=== PATIENT | male | born 1940 | race Caucasian/White ===

== ENCOUNTER 2016-11-26 09:16 | Emergency (ER) | payer OTHER ==
[2016-11-26] MEDS ORDERED: XYLOCAINE-MPF 1% INJ ONE (10:38)
[2016-11-26] MEDS ORDERED: BOOSTRIX VACCINE IM ONE (10:40)
--- NOTE | 2016-11-26 10:42 | PROVIDER DOCUMENTATION ---
HPI-Rash/Wound/ReCheck - General Chief Complaint: Fall Stated Complaint: FALL Time Seen by Provider: 11/26/16 10:35 Source: patient Allergies/Adverse Reactions: Allergies Allergy/AdvReac Type Severity Reaction Status Date / Time meperidine HCl * Allergy Unknown Verified 11/26/16 11:17 [From Demerol] codeine AdvReac CONSTIPATIO Verified 11/26/16 11:17 N Home Medications: Aspirin 325 mg PO DAILY 07/12/14 Citalopram [Celexa] 20 mg PO DAILY 07/12/14 Clopidogrel Bisulfate [Plavix] 75 mg PO DAILY 07/12/14 Isosorbide Mononitrate E.r. [Imdur] 30 mg PO DAILY 07/12/14 Ranolazine E.r. 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 Denies other injuries , no loc. Only on Aspirin, no blood thinners. States she he was getting up, got caught in the covers falling over. ED Head and Neck: 1 - through lip Review of Systems - Adult - REVIEW OF SYSTEMS - ADULT Constitutional: reports: no symptoms reported. denies: chills, fever, fatique Eyes: reports: no symptoms reported. denies: decreased vision, blurred vision, double vision, eye pain Ears, Nose, Mouth & Throat: reports: other (lip laceration). denies: ear pain, nose pain, throat pain Cardiovascular: reports: no symptoms reported. denies: chest pain Respiratory: reports: no symptoms reported. denies: cough, shortness of breath Gastrointestinal: reports: no symptoms reported. denies: abdominal pain, diarrhea, nausea, vomiting Genitourinary: reports: no symptoms reported. denies: dysuria, discharge, frequency, incontinence Musculoskeletal: denies: bone pain, back pain, joint pain, muscle aches, neck pain Integumentary: reports: no symptoms reported, other (laceration). denies: rash Neurological: reports: no symptoms reported. denies: ataxia, dizziness/vertigo , headache/migraines Psychiatric: reports: no symptoms reported Endocrine: reports: no symptoms reported Hematologic/Lymphatic: reports: no symptoms reported Allergic/Immunologic: reports: no symptoms reported All Other Systems: Reviewed and Negative Past History - Adult - PAST MEDICAL HISTORY-ADULT Review of Records: reports: Old Records Reviewed, Nursing Assessment Review, Medications Reviewed Major Childhood Illnesses: reports: denies history Cardiovascular: reports: CAD, HTN Respiratory: reports: denies history Gastrointestinal: reports: denies history Genitourinary: reports: denies history Musculoskeletal: reports: denies history Neurological: reports: denies history Psychiatric: reports: depression Endocrine/Immune: reports: denies history Other Conditions: reports: denies history - PRIOR SURGERIES/PROCEDURES Surgical/Procedure History: reports: reviewed, not pertinent - IMMUNIZATION STATUS Childhood Immunizations: See Nurse Assessment Flu Vaccine: See Nurse Assessment - FAMILY HISTORY Family History: reviewed, not pertinent - SOCIAL HISTORY Smoking: quit greater than 1 year Substance Use: none/never Alcohol Use Frequency: never Physical Exam-General - PHYSICAL EXAM-ADULT Initial Vital Signs Reviewed: Yes - CONSTITUTIONAL General Appearance: appears well, alert, no apparent distress - EYES Eyes: PERRL/EOMI, pink conjunctivae - HEAD, EARS, NOSE, MOUTH & THROAT HENMT: moist mucous membranes, normal ENT inspection, other (laceration through the right lower lip, through and through. No apparent dental involvement.) - NECK Neck: non-tender, full range of motion, supple, normal inspection - RESPIRATORY Respiratory: chest non-tender, lungs clear, normal breath sounds, no pleuratic chest pain, no respiratory distress, no accessory muscle use. negative: respiratory distress, decreased breath sounds, accessory muscle use, crackles, rales, rhonchi, wheezing - CARDIOVASCULAR Cardiovascular: normal peripheral pulses, regular rate, rhythm, no edema - MUSCULOSKELETAL Extremity: normal gait - SKIN Integumentary: normal color, normal turgor, warm/dry, laceration(s) (as above through lip) - NEUROLOGIC Neurologic: grossly normal, no motor/sensory deficits - PSYCHIATRIC Psych/Mental Status: normal mood/affect, normal thought content, normal thought process, oriented x 3 Procedures - LACERATION/WOUND REPAIR/FB See Other Wound Location: Other: lower lip through and through Wound Length: 4 cm Wound's Depth, Shape: superficial, irregular Wound Explored/Foreign Body: foreign body removed (piece of wood) Irrigated with Saline?: Yes Prepped with: Hibiclens, Kit Utilized Anesthetic: 1%, Lidocaine/Xylocaine Volume of Anesthetic (ml's): 4 Wound Debrided: minimal Wound Repaired with: Sutures Suture Size/Type: 6.0, Non-Absorbable Number of Sutures: 5 Layer Closure?: Yes Deep Layer Suture Size/Type: 5.0, Absorbable, Gut Number Deep Layer Sutures: 4 Sterile Dressing Applied?: Yes Splint Applied?: No Sling Applied?: No Post Procedure Neurovascular Exam: Intact Procedure Comment: patient tolerated procedure well. Departure - Departure Time of Disposition Order: 11:30 DIAGNOSIS: Laceration Fall Qualifiers: Encounter type: initial encounter Qualified Code(s): W19.XXXA - Unspecified fall, initial encounter Disposition: HOME 01 Certified Medical Emergency: Emergent Condition: Stable Additional Instructions: follow up in 5 days for removal Follow up with your primary care physician ED Follow Up Instructions: You have been treated by a care provider in the Emergency Department. These instructions are being provided to you so you can have an understanding of how to care for yourself upon discharge. Upon discharge from the Emergency Department, you are responsible for making arrangements for follow-up care by a physician of your choice. Take all prescribed medications as directed. Return to the Emergency Department immediately for any new or worsening symptoms. You may call the Physician Referral phone number at [phone] to obtain a list of Physicians who are taking new patients. Prescriptions: Cephalexin [Keflex] 500 mg PO BID #14 capsule Referrals: Abdi Huddleston MD [Primary Care Provider] - Instructions: Fall Prevention and Home Safety, [id number], Laceration Care, Adult, [id number] Attestation - Physician/ Mid-level Attestation Patient care was provided by Mid-level provider (HARDBOARD GRINDER/PA):: Yes Mid-level provider:: Heydi Duffy Mid-level documentation review:: The Mid-level provider documentation, treatment plan and medical decision making was reviewed by the physician who agrees with all treatment and medical decision making by the MLP.
[2016-11-26 11:47] VITALS: BP 124/58
== END 2016-11-26 12:00 | disposition home or self-care (01) ==
LOC: ED 09:16
DX: S01.521A Laceration with foreign body of lip, initial encounter (principal); I25.10 Atherosclerotic heart disease of native coronary artery without angina pectoris; I10 Essential (primary) hypertension; F32.9 Major depressive disorder, single episode, unspecified; Z79.02 Long term (current) use of antithrombotics/antiplatelets; Z79.82 Long term (current) use of aspirin; Z79.899 Other long term (current) drug therapy; Z87.891 Personal history of nicotine dependence; W19.XXXA Unspecified fall, initial encounter
CPT/HCPCS: 90715

== ENCOUNTER 2016-11-28 12:42 | Inpatient (IN) | payer OTHER ==
[2016-11-28] MEDS ORDERED: ZOFRAN IV PRN (13:18)
[2016-11-28] MEDS ORDERED: TYLENOL PO PRN (13:18)
[2016-11-28] MEDS ORDERED: NS 500 ML IV ONE (13:18)
[2016-11-28 13:41] LABS: MANUAL DIFF NEEDED? NO
[2016-11-28 13:51] LABS: BASO% 0.4 % (0.0-0.8); EOS# 0.19 X1000 (0.0-0.7); EOS% 2.7 % (0.0-10.0); HEMATOCRIT 33.4 % (42.0-52.0); HEMOGLOBIN 10.5 g/dL (14.0-18.0); IMM GRAN# 0.11 X1000 (0.0-0.04); IMM GRAN% 1.6 % (0.0-0.5); LYMPH# 1.22 X1000 (1.2-3.4); LYMPH% 17.3 % (20.5-51.1); MCH 31.8 PG (27-31); MCHC 31.4 g/dL (33-37); MCV 101.2 FL (81-99); MONO% 7.1 % (1.7-9.3); MPV 9.1 FL (7.4-10.4); NEUT% 70.9 % (42.2-75.2); PLT 247 X1000 (130-400)
[2016-11-28 14:18] LABS: ALBUMIN 3.6 g/dL (3.5-5.0); CALCIUM 9.6 mg/dL (8.8-10.2); POTASSIUM 4.5 mmol/L (3.5-5.1); TOTAL BILIRUBIN 0.43 mg/dL (0.20-1.00); TOTAL PROTEIN 6.5 g/dL (6.3-8.3)
--- NOTE | 2016-11-28 14:43 | Diag Imaging Result Document ---
PROCEDURE NAME: CHEST-PORTABLE - 11/28/2016 CHEST, SINGLE VIEW: INDICATION: Shortness of breath. COMPARISON: 11/13/2016. FINDINGS: There is stable elevation of the left hemidiaphragm. Stable cardiomegaly with median sternotomy wires and valvular replacement. Stable postsurgical changes in the lower neck. There is pulmonary vascular congestion involving the right lung and prominent interstitial markings similar in appearance to the prior studies. IMPRESSION: 1. Stable cardiomegaly with vascular congestion and interstitial edema versus fibrosis. 2. Stable elevation of the left hemidiaphragm.
--- NOTE | 2016-11-28 18:18 | HISTORY AND PHYSICAL ---
PRIMARY CARE PHYSICIAN: Dr. Abdi Huddleston. CHIEF COMPLAINT: Profound weakness, hypotension, nausea and vomiting. HISTORY OF PRESENT ILLNESS: A 76-year-old white male with a very complicated past medical history, presents for evaluation of above-mentioned symptoms. Current history of present illness began on 11/12/2016. At that time, patient was admitted to [facility] with shortness of breath, weakness, and alteration of mental status. Ultimately, it was felt that the patient's condition largely was secondary to advanced end-stage renal disease. Hemodialysis was initiated. Over the course of hospitalization, his overall condition improved. He was discharged home on 11/14/2016. Since being home, patient has become more accustomed to hemodialysis. He has, however, continued to have profound weakness. He has had 1 fall resulting in ER evaluation. Patient presented to my office today for routine follow up. Upon arrival, his blood pressure was noted to be 65/45. He was experiencing nausea and vomiting. Because of his condition, patient was admitted directly to [facility]. Of note, patient denies fevers, chills, cough, congestion, dysuria, hematuria, pyuria, abdominal pain, or other infectious symptoms. His dementia has been largely unchanged above his baseline. He continues to have shortness of breath which is largely unchanged. He denies palpitations or chest discomfort. PAST MEDICAL HISTORY: 1. Abnormal electrocardiogram with short WI interval. 2. Abnormal skin examination with multiple actinic keratoses, seborrheic keratoses, and a basal cell carcinoma. 3. Dementia. 4. Mild bilateral carotid artery disease. 5. Cervical spine pain status post surgical intervention by Dr. Almodovar in 2007. 6. Cholelithiasis status post laparoscopic cholecystectomy in 2005. 7. End-stage renal disease. 8. Constipation. 9. Hiatal hernia. 10. Unsteady gait secondary to dementia, chronic kidney disease, arthritis, and weakness. 11. Benign prostatic hypertrophy. 12. Reflux disease. 13. Hypertension. 14. Hypertriglyceridemia. 15. Hyperlipidemia. 16. Hyperparathyroidism. 17. Coronary artery disease status post coronary artery bypass grafting in 2009. 18. Mitral valve replacement in 2009. 19. Low back pain. 20. Erectile dysfunction status post penile pump implant in 2005. 21. Obstructive sleep apnea. 22. Osteoarthritis. 23. Peripheral vascular disease. 24. Family history of ischemic heart disease. CURRENT MEDICATIONS: 1. Acetaminophen 650 mg every 4 hours as needed. 2. Amlodipine 2.5 mg at bedtime. 3. Colace 200 mg at bedtime. 4. Famotidine 20 mg twice daily. 5. Losartan 25 mg twice daily. 6. Metoprolol 50 mg twice daily. 7. Aspirin 325 mg daily. 8. Calcitriol 0.5 mg daily. 9. Citalopram 20 mg daily. 10. Clopidogrel 75 mg daily. 11. Isosorbide mononitrate 30 mg daily. 12. Zofran 4 mg every 4-6 hours as needed. 13. Ranexa 500 mg twice daily. 14. Exelon 1.5 mg twice daily. 15. Simvastatin 40 mg at bedtime. ALLERGIES: PATIENT STATES HE IS ALLERGIC TO ARICEPT WHICH CAUSES TRANSAMINITIS, CODEINE WHICH CAUSES ALTERATION OF MENTAL STATUS, DARVOCET-N 100 AND LISINOPRIL. SOCIAL HISTORY: Patient is a previous smoker. He smoked 1/2 pack per day for 37 years. He stopped in 1987. He denies alcohol or illicit drug use. He is retired from [employer]. He worked [employer]. He enjoys football. He does not exercise routinely. FAMILY HISTORY: Patient's father passed at age 70 secondary to complications of coronary artery disease. Patient's mother passed at age 95 secondary to complications of colon cancer. She had a history of an arrhythmia. REVIEW OF SYSTEMS: A 12-point review of systems was performed. Pertinent positives and negatives are noted in history present illness. PHYSICAL EXAMINATION: VITAL SIGNS: Temperature 97.7 degrees, heart rate 64, respirations 18, blood pressure 65/45. GENERAL: Chronically ill appearing. No acute distress. HEENT: Normocephalic, atraumatic. Pupils equal, round, react to light. Extraocular muscles intact. Sclerae anicteric. [place] conjunctivae. Oral and nasopharynx clear without exudate. NECK: Supple. No lymphadenopathy. No thyromegaly. No bruits auscultated. CARDIOVASCULAR: Regular rate and rhythm. No significant murmurs, rubs, or gallops. PULMONARY: Clear to auscultation bilaterally. ABDOMEN: Soft, nontender, nondistended. Positive bowel sounds. EXTREMITIES: Moves all extremities well. No significant clubbing, cyanosis, or edema. NEUROLOGIC: Cranial nerves 2 through 12 grossly intact. Motor and sensory grossly intact. PSYCHOLOGIC EXAMINATION: Patient is pleasantly confused. LABORATORY DATA: White blood cell count 7.07, hemoglobin 10.5, hematocrit 33.4, platelet count 247,000. Sodium 133, potassium 4.5, chloride 96, bicarb 25, BUN 32, creatinine 5.2, glucose 111, total bilirubin 0.43, total protein 6.5, albumin 3.6, alkaline phosphatase 73, AST 15, ALT 8, amylase 109, lipase 150. Chest x-ray reveals stable cardiomegaly with vascular congestion and interstitial edema versus fibrosis. Stable elevation of the left hemidiaphragm. ASSESSMENT AND PLAN: A 76-year-old white male with a very complicated past medical history presents with hypotension, nausea and vomiting. The patient recently was started on hemodialysis. Unfortunately, he missed hemodialysis yesterday. In addition, his p.o. intake has been marginal. He has been taking his blood pressure medications as prescribed. At this point, I suspect the hypotension is likely iatrogenic secondary to blood pressure medications in the setting of newly introduced hemodialysis and decreased p.o. intake. We will need to rule out additional causes including infectious etiologies. His nausea and vomiting is likely secondary to the hypotensive state. We will also remain aware that missing hemodialysis may be playing a role. Patient will be admitted to the hospital for full evaluation and management of each of these conditions. 1. Admit to the ICU. 2. Hypotension. At this point, I do not appreciate an infectious etiology. We will check blood cultures and urine cultures. We will provide patient a 500 mL bolus of normal saline. We will hold antihypertensive agents. We will follow his clinical course very closely. Should pressors support be necessary, we will initiate this accordingly. 3. Intractable nausea and vomiting. I suspect this is a function of his hypotension versus missing hemodialysis. We will consult Dr. Cheatham as described below. We will treat patient supportively. We will treat the hypotension. We will monitor for any evidence of infectious etiologies. 4. End-stage renal disease. We will consult Dr. Cheatham to reinitiate hemodialysis. We will remain aware. 5. Unsteady gait/weakness. Again, I suspect this is multifactorial. Anticipate with improvement in his blood pressure this may also improve. 6. Dementia. We will continue patient's home medications. 7. Hyperlipidemia. We will continue patient on simvastatin therapy. 8. Coronary artery disease. We will remain aware. We will continue his cardiac prudent medications.
[2016-11-28] MEDS: PEPCID PO SCH (20:17)
[2016-11-28] MEDS: RANEXA PO SCH (20:17)
[2016-11-28] MEDS ORDERED: COLACE PO SCH (21:00)
[2016-11-28] MEDS ORDERED: ZOCOR PO SCH (21:00)
[2016-11-28] MEDS: LOPRESSOR PO SCH (21:10)
[2016-11-28] MEDS: EXELON PO SCH (21:12)
[2016-11-29] MEDS ORDERED: TIGHT: 0.2 ML/HR MISC PRN (08:07)
[2016-11-29] MEDS ORDERED: HEPARIN IV PRN (08:07)
[2016-11-29] MEDS ORDERED: NS 2,000 ML MISC PRN (08:07)
[2016-11-29] MEDS: RANEXA PO SCH (08:10)
[2016-11-29] MEDS: LOPRESSOR PO SCH (08:10)
[2016-11-29] MEDS: PEPCID PO SCH (08:11)
[2016-11-29] MEDS: EXELON PO SCH (08:12)
[2016-11-29] MEDS ORDERED: CELEXA PO SCH (09:00)
[2016-11-29] MEDS ORDERED: PLAVIX PO SCH (09:00)
[2016-11-29] MEDS ORDERED: ROCALTROL PO SCH (09:00)
[2016-11-29] MEDS ORDERED: ASPIRIN PO SCH (09:00)
[2016-11-29 09:06] LABS: URINE CULTURE NEEDED? NO; URINE MICRO REVIEW NEEDED? NO; URINE SOURCE CLEAN CATCH
[2016-11-29 09:09] LABS: BILIRUBIN URINE NEGATIVE (NEGATIVE); BLOOD URINE NEGATIVE (NEGATIVE); COLOR YELLOW; GLUCOSE URINE NEGATIVE (NEGATIVE); LEUKOCYTES URINE NEGATIVE (NEGATIVE); NITRITE URINE NEGATIVE (NEGATIVE); PH URINE 5.5; PROTEIN URINE 100 mg/dL (NEGATIVE); SP GRAVITY URINE 1.018; TURBIDITY URINE CLEAR (CLEAR); UR EPITHELIAL CELLS <10 /HPF (<10); URINE BACTERIA NEGATIVE /HPF; URINE RBC <10 /HPF (<10); URINE WBC <10 /HPF (<10); UROBILINOGEN URINE NORMAL (NORMAL)
[2016-11-29] MEDS ORDERED: NS 2,000 ML ONE (10:28)
[2016-11-29] MEDS ORDERED: HEPARIN ONE (10:28)
--- NOTE | 2016-11-29 14:01 | CONSULTATION ---
DATE OF CONSULTATION: 11/29/2016 REASON FOR CONSULTATION: End-stage kidney disease. HISTORY OF PRESENT ILLNESS: He has advanced dementia as well as multiple other medical problems. He has been on dialysis for a couple weeks. He attended his treatment on Thursday and had no new problems and actually did well overall. On Thursday, he got up and promptly fell to the ground and lacerated his lip, requiring multiple stitches. Yesterday he went was unwilling to attend his dialysis treatment and was subsequently seen by Dr. Huddleston and admitted to the hospital. He was significantly hypotensive on his arrival in Dr. Huddleston' office though his hypotension promptly resolved on admission. He was given some fluids. Today he states he feels well. He has not had nausea or vomiting though his appetite has been somewhat low. No shortness of breath. He does have weakness. He has not gotten out of bed today. PAST MEDICAL HISTORY: Dementia, end-stage kidney disease, hypertension, hyperlipidemia, hyperparathyroidism, coronary disease, obstructive his sleep apnea, peripheral vascular disease. HOME MEDICATIONS: Amlodipine, Colace, famotidine, losartan, metoprolol, aspirin, calcitriol, citalopram, clopidogrel, isosorbide, Zofran, Ranexa, Exelon, simvastatin. ALLERGIES: Codeine. Lisinopril. SOCIAL HISTORY: Former smoker. Lives with his . FAMILY HISTORY: Noncontributory. REVIEW OF SYSTEMS: Otherwise noncontributory. PHYSICAL EXAMINATION: Vital Signs: Blood pressure 139/80, heart rate 112, respirations 17, afebrile. Intake and output are incomplete. General: Elderly man lying at 30 degrees in no distress. Skin: Warm and dry with ecchymoses. He has a laceration of the lip. Conjunctivae are pink. Pupils are equal. Oropharynx is dry. Neck: Supple. Neck veins are not distended. Heart: Irregular Lungs: Have equal breath sounds. No crackles. Abdomen: Soft, nontender. Bowel sounds present. Extremities: Have no edema, clubbing, or cyanosis. LABORATORY DATA: Sodium 133, potassium 4.5, chloride 96, bicarbonate 25, BUN 32, creatinine 5.2, hemoglobin 10.5. IMPRESSION: End-stage kidney disease. PLAN: He will have his routine hemodialysis today. We will use his outpatient dry weight and 2 potassium bath. If necessary, we will replace his volume. Echocardiogram is pending to assess his hypotension but his medications have been modified and his blood pressure is improved.
[2016-11-29 16:38] VITALS: BP 119/65
--- NOTE | 2016-11-29 17:03 | ECHO REPORT ---
ORDER DATE: 11/28/2016 INDICATION: Fall, coronary artery disease, shortness of breath. Evaluate for pericardial effusion. This is a limited study. No Doppler evaluation was performed. Two dimensional M-mode images are available. 1. Right heart is poorly visualized. Overall right ventricular systolic function appears normal. 2. There does appear to be a prosthetic in the mitral position. No Doppler evaluation was performed. Limited 2D evaluation is able to be performed. 3. LV systolic function appears normal and is estimated at greater than 55%. No obvious segmental wall motion abnormalities on limited study. 4. Aortic valve opens well. 5. There is no pericardial effusion identified.
--- NOTE | 2016-11-29 18:31 | DISCHARGE SUMMARY ---
ADMISSION DATE: 11/28/2016 DISCHARGE DATE: 11/29/2016 ADMISSION DIAGNOSES: 1. Profound weakness. 2. Hypotension. 3. Nausea and vomiting. DISCHARGE DIAGNOSES: 1. Hypotension, likely secondary to iatrogenic etiology with iatrogenic and medication associated secondary to recent initiation of hemodialysis and decreased p.o. intake. 2. Intractable nausea and vomiting, likely secondary to hypotension. 3. End-stage renal disease, present on arrival. 4. Unsteady gait/weakness, present on arrival. 5. Dementia, present on arrival. 6. Hyperlipidemia, present on arrival. 7. Coronary artery disease, present on arrival. CONSULTATIONS: Dr. Cheatham with nephrology was consulted for further evaluation and management of end-stage renal disease. PROCEDURES: Hemodialysis was performed on 11/29/2016 prior to discharge. HISTORY AND PHYSICAL EXAMINATION: See admit note. PHYSICAL EXAMINATION PRIOR TO DISCHARGE: Vital Signs: Temperature 97.7 degrees, heart rate 112, respirations 17, blood pressure is 139/80. General: Chronically ill appearing, no acute distress. Cardiovascular: Slightly tachycardic. Regular rhythm. No significant murmurs, rubs, or gallops. Pulmonary: Clear to auscultation bilaterally. Abdomen: Soft, nontender, nondistended. Positive bowel sounds. Extremities: Moves all extremities well. No significant clubbing, cyanosis, or edema. Dermatologic: Evaluation reveals no evidence of rash. LABORATORY DATA: Prior to discharge: None. HOSPITAL COURSE: Patient was admitted as per history and physical examination. Hospital course per condition is as follows. 1. Hypotension. While in my office, patient's blood pressure was 65/45. He was pale with associated nausea and vomiting. The patient was immediately placed in the hospital and given 500 mL bolus of normal saline. With the extra volume, patient's blood pressure improved considerably. His losartan and amlodipine were held while hospitalized. Over the course of 12-24 hours, patient's blood pressure normalized. At this point, I suspect the patient's hypotension was secondary to blood pressure medications in the setting of newly introduced hemodialysis. Cultures and infectious evaluation thus far has been negative. We will plan to discharge patient home with losartan and amlodipine held. We will continue metoprolol and Imdur. We will follow his clinical course very closely. We will discuss volume with for hemodialysis control. 2. Intractable nausea, vomiting. I suspect this was a function of his underlying hypotension. With improvement in his blood pressure, his nausea and vomiting improved. We will continue to follow this as an outpatient as well. He has Zofran to be used if needed. 3. End-stage renal disease. Patient missed a round of hemodialysis on . Certainly this may be playing a role in his underlying nausea and vomiting. He will receive hemodialysis prior to discharge. Should he tolerate this well, we will plan discharge thereafter. 4. Unsteady gait/weakness. I suspect this is multifactorial. We will adjust blood pressure medications as described above. We will encourage activity. 5. Dementia. The patient was maintained on his home medications while hospitalized. His dementia is at baseline. 6. Hyperlipidemia. Patient was continued on atorvastatin therapy while hospitalized. 7. Coronary artery disease. The patient has extensive disease. We will continue to optimize his medical and nonmedical management. He currently is asymptomatic. DISCHARGE CONDITION: Stable. DISPOSITION: Discharge to home. MEDICATIONS: 1. Acetaminophen 650 mg every 4 hours as needed. 2. Colace 200 mg at bedtime. 3. Famotidine 20 mg twice daily. 4. Metoprolol 50 mg twice daily. 5. Aspirin 325 mg daily. 6. Calcitriol 0.5 mg daily. 7. Citalopram 20 mg daily. 8. Clopidogrel 75 mg daily. 9. Imdur 30 mg daily. 10. Zofran 4 mg every 4-6 hours as needed. 11. Ranexa 500 mg twice daily. 12. Exelon 1.5 mg twice daily. 13. Simvastatin 40 mg at bedtime. 14. The patient has been instructed to discontinue amlodipine 2.5 mg at bedtime and losartan 25 mg twice daily. FOLLOWUP: The patient to follow with me in approximately 1-2 weeks.
== END 2016-11-29 18:05 | disposition home or self-care (01) | DRG 312 ==
LOC: EDIPHOLD 14:07 → ICU 15:21
PROVIDERS: ADMIT Internal Medicine; ATTEND Internal Medicine
PROC: 5A1D00Z (ICD-10-PCS; principal; 2016-11-29)
DX: I95.2 Hypotension due to drugs (principal); N18.6 End stage renal disease; F03.90 Unspecified dementia, unspecified severity, without behavioral disturbance, psychotic disturbance, mood disturbance, and anxiety; I12.0 Hypertensive chronic kidney disease with stage 5 chronic kidney disease or end stage renal disease; I25.10 Atherosclerotic heart disease of native coronary artery without angina pectoris; E78.5 Hyperlipidemia, unspecified; R26.81 Unsteadiness on feet; Z91.15 Patient's noncompliance with renal dialysis; I73.9 Peripheral vascular disease, unspecified; E21.3 Hyperparathyroidism, unspecified; E78.1 Pure hyperglyceridemia; K21.9 Gastro-esophageal reflux disease without esophagitis; N40.0 Benign prostatic hyperplasia without lower urinary tract symptoms; G47.33 Obstructive sleep apnea (adult) (pediatric); K59.00 Constipation, unspecified; N52.9 Male erectile dysfunction, unspecified; M19.90 Unspecified osteoarthritis, unspecified site; Z79.899 Other long term (current) drug therapy; Z79.82 Long term (current) use of aspirin; Z87.891 Personal history of nicotine dependence; Z85.828 Personal history of other malignant neoplasm of skin; Z79.02 Long term (current) use of antithrombotics/antiplatelets; Z91.81 History of falling; Z95.1 Presence of aortocoronary bypass graft; Z95.2 Presence of prosthetic heart valve; Z82.49 Family history of ischemic heart disease and other diseases of the circulatory system; Z80.0 Family history of malignant neoplasm of digestive organs; T46.5X5A Adverse effect of other antihypertensive drugs, initial encounter; T46.1X5A Adverse effect of calcium-channel blockers, initial encounter
CPT/HCPCS: 71010; 80053; 81001; 82150; 82550; 83690; 85025; 87040; 90715; 93308; J1644; J7030

== ENCOUNTER 2017-03-19 08:45 | Inpatient (IN) ==
[2017-03-19 10:13] LABS: BASO% 0.3 % (0.0-0.8); EOS% 1.4 % (0.0-10.0); HEMOGLOBIN 12.8 g/dL (14.0-18.0); IMM GRAN# 0.02 X1000 (0.0-0.04); IMM GRAN% 0.3 % (0.0-0.5); LYMPH# 0.84 X1000 (1.2-3.4); LYMPH% 12.1 % (20.5-51.1); MANUAL DIFF NEEDED? NO; MCV 106.1 FL (81-99); MONO# 0.76 X1000 (0.11-0.59); MPV 9.3 FL (7.4-10.4); NEUT% 74.9 % (42.2-75.2); PLT 146 X1000 (130-400); RBC 3.77 XMIL (4.7-6.1)
[2017-03-19 10:18] LABS: INR 1.1; PROTIME 11.6 Seconds (9.2-11.7); PTT 30.2 Seconds (22.0-36.0)
[2017-03-19 10:25] LABS: ALBUMIN 3.6 g/dL (3.5-5.0); CALCIUM 10.3 mg/dL (8.8-10.2); POTASSIUM 4.9 mmol/L (3.5-5.1); TOTAL BILIRUBIN 0.58 mg/dL (0.20-1.00); TOTAL PROTEIN 6.6 g/dL (6.3-8.3)
--- NOTE | 2017-03-19 10:28 | PROVIDER DOCUMENTATION ---
HPI-Head Injury - General Chief Complaint: Fall Stated Complaint: fall Time Seen by Provider: 03/19/17 09:35 Source: patient Allergies/Adverse Reactions: Patient Allergies Allergy/AdvReac Type Severity Reaction Status Date / Time meperidine HCl * Allergy Unknown Verified 03/19/17 09:47 [From Demerol] codeine AdvReac CONSTIPATIO Verified 03/19/17 09:47 N Home Medications: Home Medication List Medication Instructions Recorded Confirmed Last Taken Type Aspirin 325 mg PO DAILY 07/12/14 03/19/17 03/19/17 09:00 History Citalopram [Celexa] 20 mg PO DAILY 07/12/14 03/19/17 03/19/17 09:00 History Clopidogrel Bisulfate [Plavix] 75 mg PO DAILY 07/12/14 03/19/17 03/19/17 09:00 History Ranolazine E.r. [Ranexa] 500 mg PO BID 07/12/14 03/19/17 03/18/17 22:00 History SIMVAstatin [Zocor] 40 mg PO QHS 07/12/14 03/19/17 03/18/17 22:00 History Calcitriol [Rocaltrol] 0.5 mcg PO DAILY 05/01/16 03/19/17 03/19/17 09:00 History Ondansetron HCl [Zofran] 4 mg PO Q4-6H PRN PRN 05/01/16 03/19/17 11/25/16 09:00 History Rivastigmine [Exelon] 1.5 mg PO BID 05/01/16 03/19/17 03/18/17 22:00 History Acetaminophen [Tylenol] 650 mg PO Q4H PRN PRN #0 tablet 11/14/16 03/19/17 09:00 Rx Docusate Sodium [Colace] 200 mg PO QHS #0 11/14/16 03/19/17 03/18/17 22:00 Rx Famotidine [Pepcid] 20 mg PO BID #0 tablet 11/14/16 03/19/17 03/18/17 22:00 Rx Metoprolol [Lopressor] 50 mg PO BID #0 tablet 11/14/16 03/19/17 03/18/17 22:00 Rx Isosorbide Mononitrate E.r. [Imdur] 30 mg PO DAILY #0 11/29/16 03/19/17 09:00 Rx - History of Present Illness-Head Injury Nature of Presenting Problem: Pt is a 76 y/o male c chief complaint of facial pain and epistaxis after a fall at home today. Per pt's , pt was getting out of bed and tripped and fell face first onto the bedside table. Per , he did not have LOC but was dazed. Pt has advanced dementia and is at his baseline mental status. Pt immediately had epistaxis and is still bleeding on arrival at the ER. Additionally, pt has renal failure and is on multiple anti-coagulants. Head Injury Location: reports: other (facial) Quality of Pain: reports: aching Severity: reports: mild Onset/Duration: reports: 1/2 hour ago Timing: reports: still present Method of Injury: reports: fell Any recent trauma/injury?: reports: to head Loss of Consciousness: no loss of consciousness Locality of Occurance: Home Similar Symptoms Previously?: No Recently seen or treated by another doctor?: No Review of Systems - Adult - REVIEW OF SYSTEMS - ADULT ROS:: ROS per family Constitutional: reports: no symptoms reported. denies: chills, fatique Eyes: reports: no symptoms reported. denies: blurred vision, double vision Ears, Nose, Mouth & Throat: reports: nose pain. denies: ear pain, throat pain Cardiovascular: reports: no symptoms reported. denies: chest pain, orthopnea Respiratory: reports: no symptoms reported. denies: cough, shortness of breath Gastrointestinal: reports: no symptoms reported. denies: diarrhea, nausea Genitourinary: reports: no symptoms reported. denies: dysuria, frequent UTI's, hematuria Musculoskeletal: reports: no symptoms reported. denies: bone pain, joint pain, joint swelling, muscle aches, muscle weakness Integumentary: reports: no symptoms reported. denies: itching, rash Neurological: reports: no symptoms reported. denies: numbness, paresthesia Psychiatric: reports: no symptoms reported. denies: anxiety, emotional problems Endocrine: reports: no symptoms reported. denies: cold intolerance, heat intolerance Hematologic/Lymphatic: reports: low blood count, prolonged bleeding. denies: blood clots Allergic/Immunologic: reports: no symptoms reported All Other Systems: Reviewed and Negative Past History - Adult - PAST MEDICAL HISTORY-ADULT Review of Records: reports: Old Records Reviewed, Nursing Assessment Review, Medications Reviewed, Social history reviewed & non-contributory. Major Childhood Illnesses: reports: denies history Cardiovascular: reports: CAD, HTN Respiratory: reports: denies history Gastrointestinal: reports: denies history Obstetrical/Gynecological: reports: denies history Genitourinary: reports: dialysis, ESRD Musculoskeletal: reports: denies history Neurological: reports: dementia Psychiatric: reports: depression Endocrine/Immune: reports: denies history Other Conditions: reports: denies history - PRIOR SURGERIES/PROCEDURES Surgical/Procedure History: reports: reviewed, not pertinent - IMMUNIZATION STATUS Childhood Immunizations: See Nurse Assessment Flu Vaccine: See Nurse Assessment - FAMILY HISTORY Family History: reviewed, not pertinent - SOCIAL HISTORY Smoking: denies Substance Use: none/never Alcohol Use Frequency: never Physical Exam- Neurological - Physical Exam-Neuro Initial Vital Signs Reviewed: Yes General Appearance: alert, mild distress Eye Exam: bilateral eye: normal inspection, PERRL, EOMI HENMT: maxillary tenderness, other (epistaxis) Head Injury: active bleeding (epistaxis and bleeding from mouth from posterior epistaxis) Neck: full range of motion, supple, normal inspection Respiratory: chest non-tender, wheezing (mild bilat wheezing (baseline per family)) Cardiovascular: normal peripheral pulses, regular rate, rhythm, no edema Abdominal Exam: normal bowel sounds, non tender, soft Lymphatic: no adenopathy Extremity: normal range of motion, 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 Exam: normal hearing, PERRL Motor/Sensory: no motor deficit Neurologic: grossly normal, no motor/sensory deficits Integumentary: normal color, normal turgor, warm/dry Psych/Mental Status: disoriented x 3 (baseline, dementia) - Glascow Coma Scale Best Eye Response: (4) open spontaneously Best Verbal Response: (4) confused conversation Best Motor Response: (6) obeys commands Progress - PLAN OF CARE/RESULTS Progress/Plan/Lab Results: Vital Signs - 8 hr 03/19/17 08:48 Temperature 98.8 F Pulse Rate 96 H Respiratory Rate 16 Blood Pressure 148/77 O2 Sat by Pulse Oximetry 95 Laboratory Results - last 24 hr 03/19/17 03/19/17 03/19/17 10:00 10:00 10:00 WBC 6.93 RBC 3.77 L Hgb 12.8 L Hct 40.0 L MCV 106.1 H MCH 34.0 H MCHC 32.0 L RDW Std Deviation 16.2 H Plt Count 146 MPV 9.3 Immature Gran % (Auto) 0.3 Neut % (Auto) 74.9 Lymph % (Auto) 12.1 L Cotton % (Auto) 11.0 H Eos % (Auto) 1.4 Baso % (Auto) 0.3 Immature Gran # (Auto) 0.02 Neut # (Auto) 5.19 Lymph # (Auto) 0.84 L Cotton # (Auto) 0.76 H Eos # (Auto) 0.10 Baso # (Auto) 0.02 PT 11.6 INR 1.10 PTT (Actin FS) 30.2 Sodium 146 H Potassium 4.9 Chloride 102 Carbon Dioxide 32 Anion Gap 12 BUN 35 H Creatinine 4.1 H Estimated GFR/1.73 m2 14 BUN/Creatinine Ratio 9 Glucose 115 H Calculated Osmolality 299 Calcium 10.3 H Total Bilirubin 0.58 AST 43 H ALT 47 H Alkaline Phosphatase 108 Total Protein 6.6 Albumin 3.6 Globulin 3.0 Albumin/Globulin Ratio 1.2 Orders Category Date Time Status Admit - [facility] Routine AdmDCTranf 03/19/17 12:09 Ordered Activity - Bed Rest with BRP ORDERED Care 03/19/17 12:09 Active Call Admitting on Arrival AT ADMISSION Care 03/19/17 12:10 Completed Misc. NRSG Communication Order DIRECTED Care 03/19/17 12:15 Active Nursing- MD Consult Request ROUTINE Care 03/19/17 12:08 Active Nursing- MD Consult Request ROUTINE Care 03/19/17 12:08 Active Vital Signs Order ROUTINE Care 03/19/17 12:09 Active Physician/Provider Consults Routine Cons 03/19/17 12:07 Ordered Physician/Provider Consults Routine Cons 03/19/17 12:08 Ordered Diabetic Diet Diet 03/19/17 12:10 Completed FACIAL BONES W/O CONTRAST [CT] Stat Exams 03/19/17 10:20 Completed HEAD/C-SPINE W/O CONTRAST [CT] Stat Exams 03/19/17 10:25 Draft CBC WITH ELECTRONIC DIFF [HEME] Stat Lab 03/19/17 10:00 Completed COMPREHENSIVE METABOLIC PANEL [CHEM] Stat Lab 03/19/17 10:00 Completed PROTIME WITH INR [COAG] Stat Lab 03/19/17 10:00 Completed PTT [COAG] Stat Lab 03/19/17 10:00 Completed 0.9% Sodium Chloride Inj [Ns] 1,000 ml Med 03/19/17 12:09 Discontinued IV KVO Telemetry [OM.EQ] Routine Oth 03/19/17 12:09 Active Transfer/Admit Order [TRANSFER] Routine Transfer 03/19/17 12:[address] Huddleston accepted pt, he was moved from the fast track area of the ER to the main [place] where he was holding as an in-patient while a room was being cleaned for him upstairs. at 3:30pm, I was informed that after this move his oxygen saturation decreased and he required a non-rebreather mask. Nurse stated that she sent pt up to dialysis and he was altered. Per nurse, Dr. Huddleston was notified of these changes. On initial presentation in the ER, pt was noted to have mild bilateral wheezing however his stated the pt has wheezing at baseline and Dr. Huddleston was aware and treating. His room air O2 sat was 95%. Once informed of these changes, I re-contacted Dr. Huddleston at his clinic. He stated he did not need further assistance in managing this patient. At this point, the patient had reached his room on the floor. Result Diagrams: 03/19/17 10:00 03/19/17 10:00 - REASSESSMENT Reassessment #1 Time Reassessed: 10:27 (Dr. White aware of pt and agrees c plan of care. Pt is stable and in CT scan. ) Reassessment #2 Time Reassessed: 12:00 (Dr. White at bedside. She discussed the results of imaging studies and plan of care with patient and his . ) - CT/MRI 1 CT Study: Cervical Spine, Head Impression: Normal (no acute dz - Dr. Alonso (Radiology)) 2 CT Study: Facial Bones Impression: Abnormal (Questionable hairline fx in the R maxilla anteriorly, minimal fluid in sinuses. Probable nasal septal fx and fx of inferior nasal spine of the vomer. No apparent [place] fx - Dr. Hall) - CONSULTS/PCP/HOSPITALIST Notification #1 *Consult/PCP/Hospitalist*: Dr. Gonzalez (ENT) Time Discussed: 11:45 (Recommend admit and d/c plavix and aspirin. Do not pack nose due to fx. ) #2 Consult: Dr. Huddleston (PCP) Time Discussed: 12:06 (Please admit pt to the floor. Consult Dr. Karimi and Dr. Cheatham (Nephrology) for dialysis today. ) #3 Consult: Dr. Cheatham (Nephrology) Time Discussed: 12:13 (Will see pt and evaluate for dialysis. ) Departure - Departure Time of Disposition Decision: 12:16 DIAGNOSIS: Epistaxis Fall Qualifiers: Encounter type: initial encounter Qualified Code(s): W19.XXXA - Unspecified fall, initial encounter Fracture, facial bones Qualifiers: Encounter type: initial encounter Facial bone/location: nasal bone Fracture type: closed Qualified Code(s): S02.2XXA - Fracture of nasal bones, initial encounter for closed fracture Disposition: ADMITTED INPATIENT 09 Certified Medical Emergency: Emergent Condition: Stable - Critical Care Note This patient required my direct personal management.: Yes Attestation - Physician/ BRI Attestation Patient care was provided by Advanced Practice Provider:: Yes Advanced Practice Provider:: Derrick Bernabe Advanced Practice Provider documentation review:: The Mid-level provider documentation, treatment plan and medical decision making was reviewed by the physician who agrees with all treatment and medical decision making by the MLP. The physician spent face to face time with patient:: Yes Advanced Practice Provider documentation review:: The physician spent face to face time with this patient and agrees with all MLP documentation, treatment, and medical decision making by the MLP. See provider notes for further information.
--- NOTE | 2017-03-19 11:13 | Diag Imaging Result Document ---
PROCEDURE NAME: HEAD/C-SPINE W/O CONTRAST - 03/19/[address]: A CT dose reduction protocol was used. COMPARISON: 11/12/2016. FINDINGS: There is stable mild atrophy. Stable mild periventricular white matter chronic microvascular disease. Stable small area of encephalomalacia at the right occipital lobe compatible with a small, old stroke. There is frothy fluid in the nasal passages. There is also some trace fluid in the maxillary sinuses bilaterally, nonspecific. The mastoids and middle ears are clear. IMPRESSION: 1. No acute intracranial abnormality. CT CERVICAL SPINE: A CT dose reduction protocol was used. COMPARISON: 08/25/2016. FINDINGS: Stable anterior fusion plate at C6-C7. Stable advanced degeneration at C7-T1. No acute fracture or subluxation. IMPRESSION: No acute disease or change from prior. [facility]
--- NOTE | 2017-03-19 11:54 | Diag Imaging Result Document ---
PROCEDURE NAME: FACIAL BONES W/O CONTRAST - 03/19/2017 CT OF THE FACIAL BONES: FINDINGS: There is incomplete fusion of the posterior elements of C2. There is fluid in both maxillary sinuses and a mucous retention cyst is present in the right maxillary sinus. The zygomatic arches are intact. The frontal sinuses are clear as seen. The sphenoid sinuses contain a small amount of fluid. The mandible appears to be intact. There is a considerable amount of blood and/or mucus present in the nasal passages. Anterior nasal septum is displaced slightly to the right side. There appears to be a fracture of the inferior nasal spine. There may be a fracture of the left nasal bone. There is a questionable hairline fracture of the medial anterior right maxillary bone. IMPRESSION: Nasal bone and nasal septal fracture with apparent fracture of the inferior nasal spine of the vomer. Questionable right maxillary fracture.
[2017-03-19] MEDS ORDERED: NS 1,000 ML IV ONE (12:09)
[2017-03-19] MEDS ORDERED: NS 2,000 ML MISC PRN (14:01)
[2017-03-19] MEDS ORDERED: HEPARIN IV PRN (14:01)
[2017-03-19] MEDS ORDERED: TIGHT: 0.2 ML/HR MISC PRN (14:01)
[2017-03-19] MEDS ORDERED: NS 2,000 ML ONE (14:19)
[2017-03-19] MEDS ORDERED: HEPARIN ONE (14:20)
[2017-03-19] MEDS ORDERED: STERILE WATER INJ. INJ ONE (15:12)
[2017-03-19] MEDS ORDERED: GEODON IM ONE (15:12)
[2017-03-19 16:02] LABS: ALLEN TEST YES; BE 2.8 mmoll (-3.0-3.0); BLOOD TYPE ARTERIAL; DRAW SITE R RADIAL; METHB 0.6 % (0.0-1.5); O2(CT) 17.1 mL/dL (15.0-23.0); PO2(98.6) 108 mmHg (60-100); SAMPLE BLOOD; SAO2 95.9 % (95.0-100.0); THB 12.7 g/dL (11.5-17.4); pH(98.6) 7.34 (7.35-7.45)
[2017-03-19 16:03] LABS: PCO2(98.6) 55 mmHg (35-45)
[2017-03-19 16:04] LABS: MODALITY SIMPLE MASK
--- NOTE | 2017-03-19 16:13 | Diag Imaging Result Document ---
PROCEDURE NAME: CHEST-PORTABLE - 03/19/2017 PORTABLE CHEST X-RAY: COMPARISON: 11/28/2016. FINDINGS: Stable severely low lung volumes. Stable cardiomegaly. There is worsening diffuse bilateral infiltrates compatible with pulmonary edema. There are worsening pleural effusions. IMPRESSION: Worsening from prior.
--- NOTE | 2017-03-19 17:56 | CONSULTATION ---
DATE OF CONSULTATION: 03/19/2017 HISTORY: A 76-year-old who was getting out of bed this morning, fell, struck nose on dresser, had onset of epistaxis, anterior and posterior. Brought to emergency room. CT evaluation of facial bones revealed nasal fracture along with probable fracture of medial wall maxillary sinus. Patient initially had anterior and posterior epistaxis in the emergency room. He is on anticoagulation. However, epistaxis has resolved. Some nasal congestion due to dried blood in nares. PAST MEDICAL HISTORY: Reviewed. SOCIAL AND FAMILY HISTORY: Reviewed. REVIEW OF SYSTEMS: As noted. PHYSICAL EXAMINATION: CONSTITUTIONAL: Lethargic white male. HEAD AND FACE: Facial ecchymosis, edema. No active bleeding. NOSE: External tender over dorsal. No obvious crepitus. Intranasal exam with dried blood anterior nares bilaterally. No active bleeding. ORAL CAVITY AND PHARYNX: Old blood posterior pharynx. Airway excellent. No acute bleeding. Palpation of infraorbital and lateral rims normal. Zygomatic arch is intact. NECK: Supple. No adenopathy. IMPRESSION: 1. Nasal fracture. 2. Medial maxillary sinus floor fracture. 3. Epistaxis, resolved. PLAN: Neither fracture will require surgical intervention. He has had cessation of bleeding from fracture site which is expected. Will begin saline spray in a.m. for dried blood in nose. Would not disturb nose tonight. Will follow up patient in the morning. Available if needed before then. cc: MD Abdi Denson MD
[2017-03-19] MEDS ORDERED: TYLENOL PO PRN (18:59)
[2017-03-19] MEDS ORDERED: ZOFRAN PO PRN (18:59)
[2017-03-19] MEDS: NS NEB INH SCH (21:16)
[2017-03-19] MEDS: XOPENEX NEB INH SCH (21:16)
[2017-03-20] MEDS: PEPCID PO SCH ×3 (00:59→21:44)
[2017-03-20] MEDS: LOPRESSOR PO SCH ×4 (00:59→21:43)
[2017-03-20] MEDS: COLACE PO SCH ×2 (00:59→21:43)
[2017-03-20] MEDS: EXELON PO SCH ×3 (00:59→21:44)
[2017-03-20] MEDS: ZOCOR PO SCH ×2 (01:00→21:44)
[2017-03-20] MEDS: RANEXA PO SCH ×4 (01:00→21:43)
[2017-03-20] MEDS: ATIVAN IV PRN (03:05)
--- NOTE | 2017-03-20 04:01 | HISTORY AND PHYSICAL ---
PRIMARY CARE PHYSICIAN: Abdi Huddleston MD CHIEF COMPLAINT: Facial trauma. HISTORY OF PRESENT ILLNESS: A 76-year-old white male with a complicated past medical history, presents for evaluation of the above-mentioned symptoms. Current history of present illness began this morning. The patient's is the primary historian. Apparently, patient awoke and stood, unfortunately falling forward and striking his face against the chest of drawers. Upon doing so, patient suffered significant pain. There is no evidence of loss of consciousness during this event. Because of significant blood loss and the significant trauma, patient's contacted EMS. Patient was transported to the emergency department for further evaluation and management. Upon arrival, a full evaluation was pursued. CT scan of facial bones suggested nasal bone and nasal septal fractures with apparent fracture of the inferior nasal spine of the vomer and a questionable right maxillary fracture. CT scan of the head and cervical spine revealed no evidence of acute disease. Because of significant trauma, as well as difficulty with nasal secretions/bleeding, the patient was arranged for admission to the hospital. Prior to doing so, patient was taken for hemodialysis, as he was scheduled to be dialyzed today. Unfortunately, while there, patient experienced significant agitation. Hemodialysis was forced to be discontinued. During this time the patient also developed significant hypoxia. Oxygen therapy was provided. Because of the significant agitation and a danger to himself and others, a dose of Geodon was provided. This has achieved acceptable results with appropriate sedation. PAST MEDICAL HISTORY: 1. Abnormal electrocardiogram with short CT interval. 2. Multiple actinic keratoses, seborrheic keratoses, and the left cheek basal cell carcinoma. 3. Progressive dementia. 4. Bilateral carotid artery disease. 5. Cervical spine disease, status post surgical fusion in 2005. 6. Cholelithiasis, status post cholecystectomy in 2005. 7. Chronic kidney disease, requiring hemodialysis per Dr. Cheatham. 8. Chronic constipation. 9. Hiatal hernia. 10. Increased fall risk with unsteady gait. 11. Benign prostatic hypertrophy. 12. Reflux disease with associated stricture, status post dilation in 2003. 13. Hypertension. 14. Hypertriglyceridemia. 15. Hyperlipidemia. 16. 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 17. Ischemic heart disease, status post coronary artery bypass grafting in 2009. 18. Valvular heart disease, status post mitral valve replacement in 2009. 19. Low back pain, status post surgical interventions in 1988 and 1991. 20. Erectile dysfunction, status post penile pump implant in 2005. 21. Osteoarthritis. 22. Obstructive sleep apnea. 23. Peripheral vascular disease. CURRENT MEDICATIONS: 1. Aspirin 325 mg daily. 2. Calcitriol 0.25 mg daily. 3. Celexa 40 mg daily. 4. Clopidogrel 75 mg daily. 5. Exelon 1.5 mg capsule twice daily. 6. Imdur 30 mg daily. 7. Metoprolol 50 mg twice daily. 8. Pepcid 20 mg twice daily. 9. PreserVision AREDS 1 capsule twice daily. 10. Ranexa 500 mg twice daily. 11. Simvastatin 40 mg at bedtime. 12. Tylenol 325 mg as needed. ALLERGIES: Patient is allergic to Aricept, codeine, Cozaar, Darvocet-N 100, and lisinopril. SOCIAL HISTORY: Patient is a former smoker, having smoked 1-1/2 packs per day for 37 years. He quit in 1987. He denies alcohol and illicit drug use. 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 He enjoys football. He does not exercise routinely. FAMILY HISTORY: The patient's father passed at age 77 secondary to complications of coronary artery disease. Patient's mother passed at age 95 secondary to complications of colon cancer. She had a history of leukemia, NOS. REVIEW OF SYSTEMS: Twelve point review of systems was performed. Pertinent positives and negatives noted in history present illness. PHYSICAL EXAMINATION: VITAL SIGNS: Temperature 98.2 degrees, heart rate 125, respirations 24, blood pressure is 183/89. GENERAL: Well nourished, well developed, in no acute distress. HEENT: Significant trauma with ecchymoses to bilateral periorbital regions, nasal region, and bloody nasal discharge. Normocephalic, atraumatic. Pupils equal, round, reactive to light. Extraocular muscles intact. Sclerae anicteric. Pale conjunctivae. NECK: Supple. No lymphadenopathy. No thyromegaly. No bruits auscultated. CARDIOVASCULAR: Regular rate and rhythm. No significant murmurs, rubs, or gallops. PULMONARY: Clear to auscultation bilaterally. ABDOMEN: Soft, nontender, nondistended. Positive bowel sounds. EXTREMITIES: Moves all extremities well. No significant clubbing, cyanosis, or edema. DERMATOLOGIC: Multiple ecchymoses to the face NEUROLOGIC EXAMINATION: Cranial nerves 2 through 12 grossly intact. Motor and sensory grossly intact. PSYCHOLOGIC EXAMINATION: Is appropriate. LABORATORY DATA: White blood cell count 6.93, hemoglobin 12.8, hematocrit 40.0 , platelet count 146,000. PT 11.6, INR is 1.10, PTT is 30.2. Sodium 146, potassium 4.9, chloride 102, bicarb 32, BUN 35, creatinine 4.1. Glucose 115. Calcium 10.3, total bilirubin 0.58, total protein 6.6, albumin 3.6, alkaline phosphatase 108, AST 43, ALT 47. PH 7.34, pCO2 55, pO2 108, bicarbonate 27. CT scan of the face revealed nasal bone and nasal septal fractures with apparent fracture of the inferior nasal spine of the vomer. Questionable right maxillary fracture. CT scan of the head and cervical spine revealed no acute abnormality. Chest x-ray revealed stable, severely low lung volumes. Stable cardiomegaly. There is worsening diffuse bilateral infiltrates compatible with pulmonary edema. There are worsening pleural effusions. ASSESSMENT AND PLAN: A 76-year-old white male with a complicated past medical history, presents for evaluation of nasal fractures. Unfortunately, because of his underlying anticoagulation and significant bleeding, inpatient treatment was felt most appropriate. Subsequent to this, decision, patient developed acute agitation requiring sedation as well. The patient will be admitted to the hospital for full evaluation and management of each of these conditions. 1. Admit to General Medicine. 2. Nasal bone and nasal septal fractures with apparent fracture of the inferior nasal spine of the vomer-patient's condition has been discussed with Dr. Karimi. Will consult him for further guidance. For now, we will continue supportive care. 3. Acute agitation-this likely is multifactorial. Because the patient was at risk to himself and others, a 1-time dose of Geodon was provided. This assisted with significant improvement in his overall condition. For now, we will follow this clinically. 4. End-stage renal disease-patient was due for dialysis today, but did not tolerate secondary to agitation. We will continue to follow with Dr. Cheatham. If able, I suspect we will plan to dialyze in the morning. 5. Volume overload-patient's chest x-ray is suggestive of significant volume overload state. We will discuss this with Dr. Gladish to determine the extent of fluid which can be removed in a safe and healthy manner. 6. Hypoxia-this was noted while in the emergency department. For now, we will continue oxygen per protocol. We will discuss more aggressive diuresis with Dr. Cheatham. 7. Dementia-unfortunately, the patient has progressive disease. For now, we will continue his current medical regimen. 8. Hypertension-we will continue patient on his home medications. 9. Ischemic heart disease-we will remain aware. We will continue to optimize his medical management. 10. Coronary artery disease. Unfortunately, the patient's aspirin and Plavix will need to be held for now. We will otherwise continue his optimum medical management. 11. Fluid electrolytes nutrition. We will monitor electrolytes. Saline lock IV. Renal diet and prophylaxis. The patient will be placed on SCDs. cc: Abdi Huddleston MD MTDD
[2017-03-20] MEDS: XOPENEX NEB INH SCH ×4 (04:12→20:16)
[2017-03-20 05:26] LABS: BASO% 0.3 % (0.0-0.8); EOS# 0.03 X1000 (0.0-0.7); EOS% 0.2 % (0.0-10.0); HEMATOCRIT 38.9 % (42.0-52.0); HEMOGLOBIN 12.7 g/dL (14.0-18.0); IMM GRAN# 0.06 X1000 (0.0-0.04); IMM GRAN% 0.5 % (0.0-0.5); LYMPH# 1.78 X1000 (1.2-3.4); LYMPH% 13.8 % (20.5-51.1); MANUAL DIFF NEEDED? NO; MCH 34.7 PG (27-31); MCHC 32.6 g/dL (33-37); MCV 106.3 FL (81-99); MONO# 1.31 X1000 (0.11-0.59); MONO% 10.1 % (1.7-9.3); MPV 9.4 FL (7.4-10.4); NEUT% 75.1 % (42.2-75.2); PLT 174 X1000 (130-400); RBC 3.66 XMIL (4.7-6.1)
[2017-03-20 05:28] LABS: ALBUMIN 3.6 g/dL (3.5-5.0); CALCIUM 10.3 mg/dL (8.8-10.2); POTASSIUM 4.2 mmol/L (3.5-5.1); TOTAL BILIRUBIN 0.6 mg/dL (0.20-1.00); TOTAL PROTEIN 6.6 g/dL (6.3-8.3)
[2017-03-20 05:37] LABS: ALLEN TEST YES; BE -0.7 mmoll (-3.0-3.0); BLOOD TYPE ARTERIAL; DRAW SITE R RADIAL; METHB 0.1 % (0.0-1.5); O2(CT) 14.9 mL/dL (15.0-23.0); PO2(98.6) 57 mmHg (60-100); SAMPLE BLOOD; SAO2 88.9 % (95.0-100.0); pH(98.6) 7.31 (7.35-7.45)
--- NOTE | 2017-03-20 05:37 | EKG Report ---
Test Performed on : 03/20/2017 04:41:22 AM Test Reason : wob Blood Pressure : / mmHG Vent. Rate : 144 BPM Atrial Rate : 144 BPM P-R Int : 122 ms QRS Dur : 084 ms QT Int : 344 ms P-R-T Axes : 020 072 080 degrees QTc Int : 532 ms Sinus tachycardia. Posterior infarct (cited on or before 13-NOV-2016) ST \T\ T wave abnormality, consider inferolateral ischemia Abnormal ECG When compared with ECG of 13-NOV-2016 08:54, Questionable change in QRS axis Moderate baseline artifact limits ST and T wave interpretation Rhythmic baseline sway suggests increased work of breathing Nonspecific T wave abnormality now evident in Inferior leads Confirmed by Keyana MOORE, Aj Terrell ([id number]) on 03/21/2017 9:59:12 AM
[2017-03-20 05:38] LABS: MODALITY VENTIMASK
[2017-03-20 05:39] LABS: PCO2(98.6) 52 mmHg (35-45)
[2017-03-20] MEDS ORDERED: NS 2,000 ML MISC PRN (06:57)
[2017-03-20] MEDS ORDERED: NS 2,000 ML ONE (08:00)
--- NOTE | 2017-03-20 09:27 | EKG Report ---
Test Performed on : 03/20/2017 08:54:46 AM Test Reason : tachycardia Blood Pressure : / mmHG Vent. Rate : 138 BPM Atrial Rate : 138 BPM P-R Int : 112 ms QRS Dur : 082 ms QT Int : 308 ms P-R-T Axes : 016 057 116 degrees QTc Int : 466 ms Sinus tachycardia. Possible Inferior infarct , age undetermined Abnormal ECG When compared with ECG of 20-MAR-2017 04:41, (Unconfirmed) T wave inversion no longer evident in Anterior leads Confirmed by Keyana MOORE, Aj Terrell ([id number]) on 03/21/2017 10:02:43 AM
[2017-03-20 09:34] LABS: URINE CULTURE NEEDED? NO; URINE SOURCE CATH
[2017-03-20 09:43] LABS: BILIRUBIN URINE NEGATIVE (NEGATIVE); BLOOD URINE LARGE (NEGATIVE); COLOR YELLOW; GLUCOSE URINE NEGATIVE (NEGATIVE); LEUKOCYTES URINE NEGATIVE (NEGATIVE); NITRITE URINE NEGATIVE (NEGATIVE); PH URINE 5.5; PROTEIN URINE 200 mg/dL (NEGATIVE); SP GRAVITY URINE 1.024; TURBIDITY URINE HAZY (CLEAR); UROBILINOGEN URINE NORMAL (NORMAL)
[2017-03-20 09:45] LABS: URINE MICRO REVIEW NEEDED? YES
[2017-03-20 10:12] LABS: UR EPITHELIAL CELLS >10 /HPF (<10); URINE BACTERIA NEGATIVE /HPF; URINE RBC TNTC /HPF (<10); URINE WBC <10 /HPF (<10)
[2017-03-20 10:13] LABS: URINE CASTS NONE SEEN
[2017-03-20] MEDS: AYR NASAL SPRAY NAS SCH ×3 (10:37→23:37)
--- NOTE | 2017-03-20 11:12 | PROGRESS NOTE ---
DATE: 03/20/2017 SUBJECTIVE: He is sleeping today. He has received Geodon and Ativan. OBJECTIVE: Vital signs: Blood pressure 157/81, heart rate 143, respirations 24, afebrile. General: He is an elderly man, lying on his right side. Increased respiratory rate. Skin: Cool and mildly diaphoretic. HEENT: Extensive bruising around the eyes and mid face. Oropharynx is dry. Neck: Neck veins are not appreciated. Heart: Regular and tachycardic. Lungs: Equal breath sounds, a few scattered crackles. Abdomen: Soft, nontender, bowel sounds present. Extremities: Minimal edema, no clubbing or cyanosis. LABORATORY DATA: Sodium 149, potassium 4.2, chloride 102, bicarbonate 28, BUN 41, creatinine 4.5. Hemoglobin 12.7. IMPRESSION: 1. End-stage kidney disease with pulmonary edema. Hemodialysis this morning. Continue supplemental oxygen. We will reassess. If he does not improve, then he will need to be transferred to the intensive care unit. 2. Tachycardia: Etiology is not obvious. EKG has been ordered as well as blood cultures and empiric antibiotics. 3. Electrolytes/acid-base in target. cc: MD Abdi Cameron MD
[2017-03-20] MEDS: ZOSYN 2.25 GM/NS 2.25 GM/50 ML IVPB IV SCH ×2 (13:29→21:43)
[2017-03-20] MEDS: ROCALTROL PO SCH (13:30)
[2017-03-20] MEDS: CELEXA PO SCH (13:31)
[2017-03-20] MEDS: IMDUR PO SCH (13:31)
[2017-03-20] MEDS: NS NEB INH SCH (20:16)
--- NOTE | 2017-03-20 22:01 | PROGRESS NOTE ---
DATE: 03/20/2017 SUBJECTIVE: Patient was admitted yesterday with facial trauma resulting in nasal bone and nasal septal fractures. Because of patient's underlying end-stage renal disease, hemodialysis was attempted but unfortunately patient did not tolerate secondary to agitation. The patient required Geodon to maintain adequate safety. Over the course of the last 24 hours, unfortunately patient developed increasing work of breathing and shortness of breath. Chest x-ray suggested excess volume. Early this morning, I was contacted in regards to underlying tachycardia and further increase in work of breathing. ABG suggested a respiratory acidosis. The patient was taken to hemodialysis. This evening, the patient remains somnolent but arousable. He is interactive upon questioning. He continues to require supplemental oxygen to maintain adequate oxygen saturations. He remained very weak. There has been no evidence of fevers, chills, nausea, vomiting, or chest discomfort. He has had minimal p.o. intake today. OBJECTIVE: Vital signs: Temperature max 98.8 degrees, heart rate 96-143, respirations 16-27, blood pressure 111-180 over 77-95. General: Chronically ill appearing, mild increased work of breathing. Cardiovascular: Tachycardic, regular rhythm. No significant murmurs, rubs, or gallops. Pulmonary: Crackles at bilateral bases. Abdomen: Soft, nontender, nondistended. Positive bowel sounds. Extremities: Moves all extremities well. No significant clubbing, cyanosis, or edema. Dermatologic: Evaluation reveals multiple ecchymoses and bilateral periorbital ecchymoses secondary to nasal trauma. LABORATORY DATA: White blood cell count 12.94, hemoglobin 12.7, hematocrit 38.9, platelet count 174,000. Sodium 149, potassium 4.2, chloride 102, bicarb 28, BUN 41, creatinine 4.5, glucose 128, calcium 10.3, total bilirubin 0.60, total protein 6.6, albumin 3.6, alkaline phosphatase 112, AST 34, ALT 38. CK 179, troponin 0.088, pH 7.31 pCO2 52, PO2 57, bicarbonate 24. ASSESSMENT AND PLAN: 1. Nasal bone and nasal septal fractures with apparent fracture of the inferior nasal spine of the vomer-I appreciate Dr. Karimi's consultation. We will continue conservative management. At present time, he appears to have achieved hemostasis. 2. Acute agitation-this likely was multifactorial. As above, patient required Geodon for his and the nursing staff's safety. Since that time, patient has remained somewhat somnolent but arousable. There has been no further evidence of agitation. 3. Acute respiratory failure-this also may be multifactorial. Initially, I felt this likely was simply secondary to volume overload in the setting of end-stage renal disease. With his significant epistaxis and high risk for aspiration, I am concerned the patient may also have an aspiration pneumonia/pneumonitis. Blood cultures were drawn today. Patient was started on Zosyn therapy. We will continue oxygen per protocol and aspiration precautions. We will follow this closely. 4. End-stage renal disease-patient received hemodialysis today. We will plan to repeat this tomorrow. Once again, we will follow his volume status closely. 5. Volume overload-as above, this is secondary to end-stage renal disease. We will plan dialysis again in the a.m. 6. Hypoxia-this is secondary to volume overload and possible aspiration. We will continue oxygen per protocol. 7. Dementia-the patient has progressive disease. We will continue his medical regimen. 8. Hypertension-we will continue patient on his home medications. 9. Ischemic heart disease-patient has longstanding disease. There has been no evidence of active ischemia. We will continue to optimize his medical management with the exception of holding aspirin and Plavix. 10. Code status-I discussed this with patient's . She plans to discuss this further with her family. At this point, he remains a full code. 11. Disposition-at this point, patient continues to require group home care in a hospital setting. We will plan discharge home once appropriate. cc: Abdi Huddleston MD
[2017-03-21] MEDS: XOPENEX NEB INH SCH ×4 (04:28→20:21)
[2017-03-21] MEDS: ATIVAN IV PRN (04:43)
[2017-03-21 05:24] LABS: ALLEN TEST YES; BE 3.1 mmoll (-3.0-3.0); BLOOD TYPE ARTERIAL; DRAW SITE R RADIAL; METHB 0.3 % (0.0-1.5); O2(CT) 23.8 mL/dL (15.0-23.0); PCO2(98.6) 50 mmHg (35-45); PO2(98.6) 103 mmHg (60-100); SAMPLE BLOOD; SAO2 95.8 % (95.0-100.0); THB 17.7 g/dL (11.5-17.4); pH(98.6) 7.38 (7.35-7.45)
[2017-03-21 05:25] LABS: MODALITY VENTIMASK
[2017-03-21 07:07] LABS: MANUAL DIFF NEEDED? NO
[2017-03-21 07:11] LABS: BASO% 0.6 % (0.0-0.8); EOS# 0.07 X1000 (0.0-0.7); EOS% 0.9 % (0.0-10.0); HEMATOCRIT 36.8 % (42.0-52.0); HEMOGLOBIN 12.2 g/dL (14.0-18.0); IMM GRAN# 0.03 X1000 (0.0-0.04); IMM GRAN% 0.4 % (0.0-0.5); LYMPH# 0.82 X1000 (1.2-3.4); LYMPH% 10.1 % (20.5-51.1); MCH 34.3 PG (27-31); MCHC 33.2 g/dL (33-37); MCV 103.4 FL (81-99); MONO# 0.85 X1000 (0.11-0.59); MONO% 10.5 % (1.7-9.3); MPV 9.3 FL (7.4-10.4); NEUT% 77.5 % (42.2-75.2); PLT 148 X1000 (130-400); RBC 3.56 XMIL (4.7-6.1)
[2017-03-21 07:32] LABS: ALBUMIN 3.4 g/dL (3.5-5.0); CALCIUM 9.7 mg/dL (8.8-10.2); TOTAL BILIRUBIN 0.77 mg/dL (0.20-1.00); TOTAL PROTEIN 6.2 g/dL (6.3-8.3)
[2017-03-21] MEDS: AYR NASAL SPRAY NAS SCH ×4 (10:56→20:54)
[2017-03-21] MEDS: ZOSYN 2.25 GM/NS 2.25 GM/50 ML IVPB IV SCH ×2 (10:56→21:36)
[2017-03-21] MEDS: ROCALTROL PO SCH (10:57)
[2017-03-21] MEDS: TEARISOL OPH SOLUTION BOTH EYES PRN (10:57)
[2017-03-21] MEDS: IMDUR PO SCH (10:58)
[2017-03-21] MEDS: LOPRESSOR PO SCH ×2 (10:58→20:54)
[2017-03-21] MEDS: RANEXA PO SCH ×2 (10:58→20:54)
[2017-03-21] MEDS: EXELON PO SCH ×2 (10:58→20:56)
[2017-03-21] MEDS: CELEXA PO SCH (10:58)
[2017-03-21] MEDS: PEPCID PO SCH ×2 (10:59→20:56)
[2017-03-21] MEDS ORDERED: ATIVAN IV PRN (13:24)
--- NOTE | 2017-03-21 13:52 | PROGRESS NOTE ---
DATE: 03/21/2017 SUBJECTIVE: This morning, patient is resting comfortably. He arouses easily. Overnight, patient had an additional episode of agitation. Ativan was required for adequate sedation. Otherwise, there has been no evidence of fevers, chills, nausea, vomiting, or chest discomfort. He continues to require oxygen supplementation to maintain adequate saturations. His p.o. intake is minimal. OBJECTIVE: Vital Signs: T-max 98.5 degrees, heart rate 110-124, respirations 18-20, blood pressure 148-185/73-87. General: Chronically ill appearing, no acute distress. Cardiovascular: Tachycardic. Regular rhythm. No significant murmurs, rubs, or gallops. Pulmonary: Crackles at bilateral bases. Abdomen: Soft, nontender, nondistended. Positive bowel sounds. Extremities: Moves all extremities well. No significant clubbing, cyanosis, or edema. Dermatologic: Evaluation reveals multiple ecchymoses including periorbital region secondary to recent trauma. LABORATORY DATA: White blood cell count 8.10, hemoglobin 12.2, hematocrit 36.8, platelet count is a 148,000, pH 7.38, pCO2 50, pO2 103, bicarbonate 27. Sodium 140, potassium 4.0, chloride 100, bicarb 27, BUN 42, creatinine 4.3, glucose 102, calcium 9.7, total bilirubin 0.77, total protein 6.2, albumin 3.4, alkaline phosphatase 101. AST 33, ALT 30. ASSESSMENT AND PLAN: 1. Nasal bone and nasal septal fractures with apparent fracture of the inferior nasal spine of the vomer-I appreciate Dr. Karimi's consultation. At this point, we will continue conservative measures. Hemostasis has been achieved. 2. Acute agitation-this likely is multifactorial. He has required Geodon in the recent past. Last night, his condition was controlled with Ativan. We will continue to follow this closely. I suspect that with treatment of his underlying conditions, his symptoms will improve. 3. Acute respiratory failure-this likely is multifactorial. Chest x-ray suggested significant volume overload. Also I am concerned that aspiration may be playing a role. Yesterday, Zosyn was initiated. Blood cultures were drawn. Thus far, blood cultures are negative. Today, white blood cell count has returned within normal limits. For now, we will continue supportive care. 4. End-stage renal disease-the patient received dialysis yesterday. The plan is for repeat dialysis today. We will continue to work towards optimizing his volume status. 5. Hypoxia-we will continue oxygen per protocol. 6. Dementia-patient has progressive disease. We will continue his current medical regimen. 7. Hypertension-we will continue patient's home medications. 8. Ischemic heart disease-the patient's aspirin and Plavix have been held. Otherwise, we will continue to optimize his medical management. 9. Disposition-at this point, patient continues to require custodial care in the hospital setting. We will plan discharge home when it is appropriate. cc: Abdi Huddleston MD
--- NOTE | 2017-03-21 16:05 | PROGRESS NOTE ---
DATE: 03/21/2017 SUBJECTIVE: He is awake. He has been fairly difficult to control overnight however. OBJECTIVE: Vital signs: Blood pressure 157/87, heart rate 100, respirations 22, afebrile. Intake none recorded. Output 2.9 L. General: No acute distress. Skin: Warm and dry with extensive bruising on the face. HEENT: Conjunctivae are pink. Oropharynx is clear. Neck: Neck veins are not appreciated. Heart: Regular. Lungs: Have equal breath sounds. No crackles. Abdomen: Soft, nontender. Bowel sounds present. Extremities: Have no edema, clubbing, or cyanosis. IMPRESSION: 1. End-stage kidney disease. We dialyzed him on Thursday and induced hypotension. I believe we got him as dry as we can so we will not plan to dialyze over the weekend. Will treat him again on Thursday. 2. Electrolytes/acid base in target. 3. Anemia in target. 4. Hypoxemia, improved. cc: MD Abdi Cameron MD
[2017-03-21] MEDS: ZOCOR PO SCH (20:54)
[2017-03-21] MEDS: COLACE PO SCH (20:55)
[2017-03-22] MEDS: XOPENEX NEB INH SCH ×4 (04:09→22:49)
[2017-03-22 06:47] LABS: BASO% 0.4 % (0.0-0.8); EOS# 0.29 X1000 (0.0-0.7); EOS% 4.2 % (0.0-10.0); HEMATOCRIT 35.4 % (42.0-52.0); HEMOGLOBIN 11.8 g/dL (14.0-18.0); IMM GRAN# 0.02 X1000 (0.0-0.04); IMM GRAN% 0.3 % (0.0-0.5); LYMPH# 1.03 X1000 (1.2-3.4); LYMPH% 14.8 % (20.5-51.1); MANUAL DIFF NEEDED? NO; MCH 34.4 PG (27-31); MCHC 33.3 g/dL (33-37); MCV 103.2 FL (81-99); MONO# 0.81 X1000 (0.11-0.59); MONO% 11.7 % (1.7-9.3); MPV 9.2 FL (7.4-10.4); NEUT% 68.6 % (42.2-75.2); PLT 145 X1000 (130-400); RBC 3.43 XMIL (4.7-6.1)
[2017-03-22 07:06] LABS: CALCIUM 9.4 mg/dL (8.8-10.2); POTASSIUM 3.8 mmol/L (3.5-5.1); TOTAL BILIRUBIN 0.76 mg/dL (0.20-1.00); TOTAL PROTEIN 6.3 g/dL (6.3-8.3)
[2017-03-22] MEDS: EXELON PO SCH ×2 (09:03→21:30)
[2017-03-22] MEDS: ZOSYN 2.25 GM/NS 2.25 GM/50 ML IVPB IV SCH ×2 (09:04→21:29)
[2017-03-22] MEDS: ROCALTROL PO SCH (09:04)
[2017-03-22] MEDS: AYR NASAL SPRAY NAS SCH ×4 (09:04→21:29)
[2017-03-22] MEDS: CELEXA PO SCH (09:05)
[2017-03-22] MEDS: RANEXA PO SCH ×2 (09:05→21:29)
[2017-03-22] MEDS: PEPCID PO SCH ×2 (09:05→21:30)
[2017-03-22] MEDS: LOPRESSOR PO SCH ×2 (09:05→21:29)
[2017-03-22] MEDS: IMDUR PO SCH (09:05)
[2017-03-22] MEDS: ZOCOR PO SCH (21:29)
[2017-03-22] MEDS: COLACE PO SCH (21:30)
--- NOTE | 2017-03-22 22:02 | PROGRESS NOTE ---
DATE: 03/22/2017 SUBJECTIVE: This morning, patient is much more interactive. He is pleasantly confused, but back to his baseline. Patient's energy level is improving. His p.o. intake is improving. There has been no evidence of fevers, chills, nausea, vomiting, shortness of breath, or chest discomfort. He has titrated off of oxygen requirements. OBJECTIVE: Vital signs: Temperature maximum is 97.9 degrees, heart rate 95-112, respirations 16- 20, blood pressure 120-138/66-72. General: Well nourished, well developed, chronically ill appearing, no acute distress. Cardiovascular: Regular rate and rhythm. No significant murmurs, rubs, or gallops. Pulmonary: Crackles at bilateral bases. Abdomen: Soft, nontender, nondistended. Positive bowel sounds. Extremities: Moves all extremities well. No significant clubbing, cyanosis, or edema. Dermatologic: Evaluation reveals multiple ecchymoses. LABORATORY DATA: White blood cell count 6.95, hemoglobin 11.8, hematocrit 35.4, platelet count 145,000. Sodium 142, potassium 3.8, chloride 98, bicarb 27, BUN 55, creatinine 4.7, glucose 99, calcium 9.4, total bilirubin 0.76, total protein 6.3, albumin 3. Alkaline phosphatase 94, AST 24, ALT 24. ASSESSMENT AND PLAN: 1. Nasal bone and nasal septal fractures with apparent fracture of the anterior nasal spine of the vomer-I appreciate Dr. Karimi's consultation. At this point, we will continue supportive care. He will need outpatient follow up with Dr. Karimi. 2. Acute agitation-this likely was secondary to a combination of his underlying dementia and acute illness/trauma. Today, patient does appear to be back to his baseline. We will continue supportive care. 3. Acute respiratory failure-this likely is secondary to a combination of volume overload in the setting of chronic kidney disease and the possibility of underlying aspiration. The patient is being treated with aggressive measures, including bronchodilators and Zosyn therapy. His volume status is much improved. As described above, patient no longer requires oxygen supplementation. For now, we will continue his current regimen. We will encourage incentive spirometry. 4. End-stage renal disease-we will continue dialysis as arranged per Dr. Cheatham. Tentative plan is for dialysis in the morning. If patient continues to improve, we will plan to discharge home thereafter. 5. Hypoxia-as above, patient's oxygenation has improved with better volume control and treatment for possible acute pulmonary disease. We will follow this. 6. Dementia-the patient has a longstanding disease. Today, his mentation is back to baseline. 7. Hypertension-we will continue patient on his home regimen. 8. Ischemic heart disease-the patient's aspirin and Plavix have been held secondary to his fractures as described above. Otherwise, we will continue his home regimen. 9. Disposition-at this point, patient continues to require fdc care in the hospital setting. We will plan discharge home once appropriate. If able, this likely will occur tomorrow afternoon after hemodialysis. cc: Abdi Huddleston MD
[2017-03-23] MEDS: XOPENEX NEB INH SCH ×4 (03:43→22:37)
[2017-03-23 06:33] LABS: MANUAL DIFF NEEDED? NO
[2017-03-23 06:44] LABS: BASO% 0.6 % (0.0-0.8); EOS# 0.35 X1000 (0.0-0.7); EOS% 5.7 % (0.0-10.0); HEMATOCRIT 36.4 % (42.0-52.0); HEMOGLOBIN 11.7 g/dL (14.0-18.0); IMM GRAN# 0.03 X1000 (0.0-0.04); IMM GRAN% 0.5 % (0.0-0.5); LYMPH# 1.24 X1000 (1.2-3.4); MCH 33.3 PG (27-31); MCHC 32.1 g/dL (33-37); MCV 103.7 FL (81-99); MONO% 11.3 % (1.7-9.3); MPV 9.4 FL (7.4-10.4); NEUT% 61.9 % (42.2-75.2); PLT 165 X1000 (130-400); RBC 3.51 XMIL (4.7-6.1)
[2017-03-23] MEDS ORDERED: HEPARIN IV PRN (06:45)
[2017-03-23] MEDS ORDERED: NS 2,000 ML MISC PRN (06:45)
[2017-03-23] MEDS ORDERED: TIGHT: 0.2 ML/HR MISC PRN (06:45)
[2017-03-23 07:18] LABS: CALCIUM 9.6 mg/dL (8.8-10.2); POTASSIUM 3.4 mmol/L (3.5-5.1)
[2017-03-23] MEDS ORDERED: NS 2,000 ML ONE (08:39)
[2017-03-23] MEDS: AYR NASAL SPRAY NAS SCH ×5 (08:41→21:35)
--- NOTE | 2017-03-23 11:04 | PROGRESS NOTE ---
DATE: 03/23/2017 SUBJECTIVE: Mr. New is sitting up on the side of the bed. He appears in no acute distress. Skin is warm and dry. His is at his bedside. OBJECTIVE: His most recent vital signs, his last temperature 97.5 degrees, blood pressure 121/63, heart rate 90, respirations 20, he is on room air. Last recorded saturation 93% . He has had 340 in, 700 has been out per void. LABS: Sodium 143, potassium 3.4, chloride 99, CO2 28, BUN 64, creatinine 5.2, glucose 103, anion gap of 16, calcium is 9.6, white count 6.19, hemoglobin 11.7, hematocrit 36.4 with a platelet count of 165,000. PHYSICAL EXAMINATION: General: This is a 76-year-old white male. He is currently resting in bed. He is in no acute distress. Skin: Warm and dry. HEENT: Normocephalic, atraumatic. He does have bruising with bilateral black eyes noted. There are no lacerations evident. Pupils are equal and reactive to light. He does have conjunctiva that is reddened. Mucous membranes are moist. Neck: Supple. Trachea midline. No JVD. Cardiovascular: Regular rate and rhythm. Slightly tachycardic. No murmur or gallop appreciated. Lungs: Clear to auscultation anteriorly. Equal excursion. Abdomen: Round, soft, nontender. Positive bowel sounds. Extremities: Have minimal edema. No clubbing or cyanosis. Neurological: He is alert and oriented times person and to place, though he is forgetful and confused with a history of dementia. ASSESSMENT AND PLAN: 1. End-stage renal disease. Patient is due for his routine dialysis treatment today. We will place him on a 2 K bath. He is to dialyze for 3-1/2 hours. We will attempt to pull patient to his outpatient dry weight. 2. Fluid volume overload with pulmonary edema. Again he is to add supplemental oxygen and he is has had his dry weight challenged since his admission. 3. Electrolytes and acid-base balance. These remain stable with correction on dialysis. 4. Tachycardia with EKG appearing to be normal. Patient's blood cultures show no growth. He continues on renal dosed antibiotics. No indications for any changes. I would like to thank you for allowing us to follow with this patient. Seen, data reviewed, discussed with Aissatou Purcell on 03/23/17. I agree with the above assessment and plan of care. rg Dictated by ANTOLIN Zheng for Juve Cheatham MD cc: ANTOLIN Zheng MD Scott A. Matthews, MD [facility] CENTERGhada
[2017-03-23] MEDS: ROCALTROL PO SCH ×2 (13:32→14:51)
[2017-03-23] MEDS: ZOSYN 2.25 GM/NS 2.25 GM/50 ML IVPB IV SCH ×3 (13:32→21:35)
[2017-03-23] MEDS: PEPCID PO SCH ×3 (13:33→21:35)
[2017-03-23] MEDS: CELEXA PO SCH ×2 (13:33→14:50)
[2017-03-23] MEDS: IMDUR PO SCH ×2 (13:33→14:51)
[2017-03-23] MEDS: LOPRESSOR PO SCH ×3 (13:33→21:35)
[2017-03-23] MEDS: EXELON PO SCH ×3 (13:33→21:35)
[2017-03-23] MEDS: RANEXA PO SCH ×3 (13:33→21:35)
[2017-03-23] MEDS: COLACE PO SCH (21:35)
[2017-03-23] MEDS: TEARISOL OPH SOLUTION BOTH EYES PRN (21:35)
[2017-03-23] MEDS: ZOCOR PO SCH (21:35)
--- NOTE | 2017-03-23 22:38 | PROGRESS NOTE ---
DATE: 03/23/2017 SUBJECTIVE: This morning, patient was much more alert. The patient states he felt well. The patient was taken to hemodialysis. Apparently during hemodialysis, the patient became more agitated. Hemodialysis was completed and upon return, patient was noted to be significantly confused with agitation. Patient's states that he walked the halls. Ultimately, he had to be escorted back. He was treated with IV Ativan. Improvement in his overall condition was achieved. This evening patient states he is feeling better. He is somewhat weakened. Denies fevers, chills, nausea, vomiting, shortness of breath or chest discomfort. OBJECTIVE: Vital signs: T-max is 98.6 degrees, heart rate 82-107, respirations 16-23, blood pressure 100-123 over 53-66. General: Well nourished, well developed, no acute distress. Cardiovascular: Regular rate and rhythm. No significant murmurs, rubs, or gallops. Pulmonary: Clear to auscultation bilaterally. Abdomen: Soft, nontender, nondistended. Positive bowel sounds. Extremities: Moves all extremities well. No significant cyanosis, clubbing, edema. Dermatologic: Evaluation reveals multiple ecchymoses including the periorbital regions. LABORATORY DATA: White blood cell count 6.19, hemoglobin 11.7, hematocrit 36.4, platelet count 165,000. Sodium 143, potassium 3.4, chloride 99, bicarb 28, BUN 64, creatinine 5.2, glucose 103, calcium 9.6. ASSESSMENT AND PLAN: 1. Nasal bone and nasal septal fractures with apparent fracture of the anterior nasal spine of the vomer-patient's overall condition has been stabilized. He is having no evidence of active bleeding. We will continue to hold aspirin and Plavix therapy. I appreciate Dr. Karimi's consultation. We will continue conservative management per his recommendation. 2. Acute agitation-unfortunately, patient experienced a repeat episode this evening. This likely is secondary to a combination of acute illness exacerbated underlying chronic dementia. Because of his acute change, we will monitor overnight. I suspect we will be able to discharge patient home in the a.m. 3. Acute respiratory failure-this likely secondary to a combination of volume overload and possible aspiration. We will continue Zosyn therapy as he is tolerating this well. We will continue hemodialysis for volume control. His pulmonary status is currently stable. He does not require oxygen therapy. 4. End-stage renal disease-we will continue hemodialysis as dictated by Dr. Cheatham. 5. Hypoxia-the patient has achieved resolution with hemodialysis and antibiotic intervention. 6. Dementia-patient has longstanding disease. We will continue his home medications. 7. Hypertension-will continue patient on his home regimen. Blood pressure is reasonably controlled. 8. Ischemic heart disease-patient has known disease. His aspirin and Plavix has been held secondary to his nasal fractures and associated bleed. We will plan to resume this in the next couple of weeks. 9. Disposition-at this point, patient continues to require usp care in the hospital setting. We will plan discharge home in the a.m. should his condition remained stable. cc: Abdi Huddleston MD
[2017-03-24] MEDS: XOPENEX NEB INH SCH ×3 (04:24→15:51)
[2017-03-24 07:42] LABS: ALBUMIN 3.3 g/dL (3.5-5.0); CALCIUM 9.3 mg/dL (8.8-10.2); POTASSIUM 4.1 mmol/L (3.5-5.1)
[2017-03-24] MEDS: RANEXA PO SCH ×2 (07:45→08:13)
[2017-03-24] MEDS: EXELON PO SCH ×2 (07:45→08:14)
[2017-03-24] MEDS: ROCALTROL PO SCH ×2 (07:45→08:13)
[2017-03-24] MEDS: CELEXA PO SCH ×2 (07:45→08:14)
[2017-03-24] MEDS: IMDUR PO SCH ×2 (07:45→08:14)
[2017-03-24] MEDS: LOPRESSOR PO SCH ×2 (07:45→08:14)
[2017-03-24] MEDS: AYR NASAL SPRAY NAS SCH ×4 (07:46→18:05)
[2017-03-24] MEDS: PEPCID PO SCH (08:14)
[2017-03-24] MEDS: ZOSYN 2.25 GM/NS 2.25 GM/50 ML IVPB IV SCH (11:30)
--- NOTE | 2017-03-24 15:15 | PROGRESS NOTE ---
DATE: 03/24/2017 SUBJECTIVE: Mr. New is resting quietly in a chair. Head of the chair is elevated. He is sleepy. His states that he has been up most of the night and agitated. OBJECTIVE: His most recent vital signs, temperature 98.5 degrees, blood pressure 97/74, heart rate 90, respirations 18. He is on room air. Last recorded saturation is 99%. He has had 720 in. He has had 2 L off from dialysis yesterday. LABS: Sodium 144, potassium 4.1, chloride 101, CO2 22, BUN 33, creatinine 4.1. Glucose 103. Anion gap 21, calcium 9.3, phosphorus 3.5, albumin 3.3. Hemoglobin 11.7 last drawn on 03/23. PHYSICAL EXAMINATION: General: This is a 76-year-old white male. He is currently resting in a chair. He is in no acute distress. He remains very lethargic. Skin: Warm and dry. HEENT: Normocephalic, atraumatic. Bilateral bruising continues to eyes down into the cheek area. No lacerations evident. Pupils are equal and reactive to light. Conjunctivae remains slightly reddened. Bilateral mucous membranes are moist. Neck: Supple. Trachea midline. No JVD. Cardiovascular: Regular rate and rhythm. He is slightly tachycardic. No murmur or gallop appreciated. Lungs: Clear to auscultation anteriorly. Equal excursion. Abdomen: Round, soft, nontender. Positive bowel sounds. Extremities: Have minimal edema lower extremities. No clubbing or cyanosis. Integumentary: As mentioned above. No lacerations. No rashes or lesions. Neurological: As mentioned above. ASSESSMENT AND PLAN: 1. End-stage renal disease. Patient is due for his routine dialysis treatment in the a.m. We will check electrolytes and plan to dialyze him on an appropriate potassium bath. 2. Electrolytes and acid-base balance. These remain stable. 3. Fluid volume overload. This remains stable with improved pulmonary edema per dialysis. 4. Anemia. This remains low but stable. 5. Tachycardia with EKG appearing to be normal. Continues to be monitored and followed. I would to thank you for allowing us to follow with this patient. Seen, data reviewed, discussed with Aissatou Purcell on 03/24/17. I agree with the above assessment and plan of care. rg Dictated by ANTOLIN Zheng for Juve Cheatham MD cc: ANTOLIN Zheng MD Scott A. Matthews, MD [facility]ENTERGhada
[2017-03-24 18:16] VITALS: BP 104/52
--- NOTE | 2017-03-24 23:28 | DISCHARGE SUMMARY ---
ADMISSION DATE: 03/19/2017 DISCHARGE DATE: 03/24/2017 ADMISSION DIAGNOSIS: Facial trauma. DISCHARGE DIAGNOSES: 1. Nasal bone and nasal septal fractures, with apparent fracture of the anterior nasal spine of the vomer. 2. Acute agitation, resolved. 3. Acute respiratory failure, likely secondary to a combination of volume overload and possible aspiration. 4. End-stage renal disease, present on arrival. 5. Hypoxia, resolved. 6. Dementia, present on arrival. 7. Hypertension, present on arrival. 8. Ischemic heart disease, present on arrival. CONSULTATIONS: Dr. Cheatham with nephrology was consulted for further evaluation and management of hemodialysis. PROCEDURES: 1. CT scan of the facial bones was performed on 03/19/2017, which revealed nasal bone and nasal septal fractures, with apparent fracture of the inferior nasal spine of the vomer. Questionable right maxillary fracture. 2. CT scan of the head was performed on 03/19/2017, which revealed no acute intracranial abnormality. 3. CT scan of the cervical spine was performed on 03/19/2017, which revealed no acute disease. 4. Hemodialysis was performed per Dr. Cheatham. HISTORY AND PHYSICAL EXAMINATION: See admit note. PHYSICAL EXAMINATION PRIOR TO DISCHARGE: Vital Signs: Temperature 98.3 degrees, heart rate 89, respirations 22, blood pressure 104/52. General: Well-nourished, well-developed, in no acute distress. Cardiovascular: Regular rate and rhythm. No significant murmurs, rubs, or gallops. Pulmonary: Clear to auscultation bilaterally. Abdomen: Soft, nontender, nondistended. Positive bowel sounds. Extremities: Moves all extremities well. No significant clubbing, cyanosis, or edema. Dermatologic: Evaluation revealed multiple ecchymoses, including in the periorbital region. LABORATORY DATA PRIOR TO DISCHARGE: Sodium 144, potassium 4.1, chloride 101, bicarb 22, BUN 33, creatinine 4.1, glucose of 103, calcium 9.3. HOSPITAL COURSE: Patient was admitted as per history and physical examination. Hospital course per condition is as follows: 1. Nasal bone and nasal septal fractures with apparent fracture of the anterior nasal spine of the vomer - Upon admission, patient was noted to have considerable trauma. Patient was noted to have significant blood loss as well. Dr. Karimi was consulted for further evaluation and management. He recommended supportive care. The patient's aspirin and Plavix were held. Throughout hospitalization, the patient achieved hemostasis. At time of discharge, his symptoms were controlled. For now, we will continue the saline nasal spray. 2. Acute agitation - While hospitalized, the patient was noted to have acute agitation occurring after hemodialysis. Historically, the patient has experienced similar episodes. The patient was treated supportively. At time of discharge, his mentation was at baseline. 3. Acute respiratory failure - The patient was noted to have considerable shortness of breath within early hospitalization. This ultimately was felt to be secondary to volume overload. Patient was also treated with Zosyn for the possibility of aspiration. With time, the patient's overall condition improved considerably. At time of discharge, the patient was requiring no supplemental oxygen therapy. Because of normalization of white blood cell count and afebrile state, further antibiotics were not recommended. He will continue to be followed with hemodialysis. 4. End-stage renal disease - Patient was treated with hemodialysis while hospitalized, per Dr. Cheatham. 5. Dementia - Unfortunately, the patient has progressive disease. We will continue supportive care. 6. Hypertension - Patient's blood pressure remained reasonably controlled on his current regimen. 7. Ischemic heart disease - The patient's aspirin and Plavix were held secondary to his significant bleed. We will continue to hold these for 2 weeks. Thereafter, we will plan to reinitiate therapy. DISCHARGE CONDITION: Stable. DISPOSITION: Discharge to home. MEDICATIONS: 1. Saline nasal spray, 2 sprays each nostril 4 times daily. 2. Ranexa 500 mg twice daily. 3. Simvastatin 40 mg at bedtime. 4. Celexa 20 mg daily. 5. Exelon 1.5 mg twice daily. 6. Calcitriol 0.5 mg daily. 7. Zofran as needed. 8. Famotidine 20 mg twice daily. 9. Metoprolol 50 mg twice daily. 10. Acetaminophen 650 mg every 4 hours as needed. 11. Colace 200 mg at bedtime. 12. Imdur 30 mg daily. 13. Patient has been instructed to hold clonazepam and aspirin for 2 weeks. cc: Abdi Huddleston MD
== END 2017-03-24 19:35 | disposition home or self-care (01) ==
LOC: ED 08:45 → EDIPHOLD 13:16 → 3N 13:17
PROVIDERS: ADMIT Internal Medicine; ATTEND Internal Medicine

== ENCOUNTER 2017-04-22 22:40 | Inpatient (IN) ==
[2017-04-22] MEDS ORDERED: PHENERGAN IM ONE (23:47)
[2017-04-22] MEDS ORDERED: DILAUDID IM ONE (23:47)
--- NOTE | 2017-04-23 01:08 | PROVIDER DOCUMENTATION ---
This chart was entered by Regla Morris Scribe, acting as scribe for Keaton Naidu MD. HPI-Musculoskeletal Pain/Inj - GENERAL Chief Complaint: Fall Stated Complaint: bck pain Time Seen by Provider: 04/22/17 22:45 Source: patient - HX OF PRESENT ILLNESS-MUSKULOSKELTAL Nature of Presenting Problem: 76 Y/O M presents to ED with Extremity Pain. PT arrived via EMS this evening presenting to ED with back pain. Pt states that he was opening his fridge this evening and fell back and hit his hand and hurt his back. Pt is on anti- coagulants. Quality of Pain: reports: aching Severity in ED: severe Onset/Duration: this evening Timing: still present Locality of Occurance: Home - FALL INJURY Location of Pain/Injury: reports: head, back Pain Radiation: reports: no radiation Reason for Fall: reports: lost balance Symptoms prior to fall:: denies: fever/chills/sweaty, dizzy/lightheaded Injury Associated Symptoms: reports: back/neck pain. denies: nausea, weakness, trouble walking - BACK & NECK PAIN/INJURY Back/Neck Pain Location: reports: lumbar spine Context / Method of Injury: reports: fall Review of Systems - Adult - REVIEW OF SYSTEMS - ADULT Constitutional: denies: chills, fever Eyes: reports: no symptoms reported Ears, Nose, Mouth & Throat: reports: no symptoms reported Cardiovascular: reports: no symptoms reported Respiratory: reports: no symptoms reported Gastrointestinal: reports: no symptoms reported Genitourinary: reports: no symptoms reported Musculoskeletal: reports: back pain, other (head pain) Integumentary: reports: no symptoms reported Neurological: reports: no symptoms reported Psychiatric: reports: no symptoms reported Endocrine: reports: no symptoms reported Hematologic/Lymphatic: reports: no symptoms reported Allergic/Immunologic: reports: no symptoms reported All Other Systems: Reviewed and Negative Past History - Adult - PAST MEDICAL HISTORY-ADULT Review of Records: reports: Old Records Reviewed, Nursing Assessment Review, Medications Reviewed, Social history reviewed & non-contributory. Major Childhood Illnesses: reports: denies history Cardiovascular: reports: CAD, HTN Respiratory: reports: denies history Gastrointestinal: reports: denies history Obstetrical/Gynecological: reports: denies history Genitourinary: reports: dialysis, ESRD Musculoskeletal: reports: denies history Neurological: reports: dementia Psychiatric: reports: depression Endocrine/Immune: reports: denies history Other Conditions: reports: denies history - PRIOR SURGERIES/PROCEDURES Surgical/Procedure History: reports: reviewed, not pertinent - IMMUNIZATION STATUS Childhood Immunizations: See Nurse Assessment Flu Vaccine: See Nurse Assessment - FAMILY HISTORY Family History: reviewed, not pertinent Physical Exam-Injury Related - Physical Exam-Injury Related General Appearance: alert, moderate distress Eyes: PERRL/EOMI, pink conjunctivae Head, Ears, Nose, Mouth & Throat: normocephalic/atraumatic, moist mucous membranes, normal ENT inspection, TMs normal, pharynx normal Neck: non-tender, supple Respiratory: lungs clear, normal breath sounds, rib tenderness (minimal) Cardiovascular: normal peripheral pulses, regular rate, rhythm Abdominal Exam: soft Lymphatic: no adenopathy Back Exam: no vertebral tenderness Extremity: non-tender, other (abrasion noted to right elbow). 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 tested Psych/Mental Status: oriented x 3 Progress - PLAN OF CARE/RESULTS Progress/Plan/Lab Results: Vital Signs - 8 hr 04/22/17 22:53 Pulse Rate 92 H Respiratory Rate 16 Blood Pressure 126/73 O2 Sat by Pulse Oximetry 92 L Orders Category Date Time Status HEAD/C-SPINE W/O CONTRAST [CT] Stat Exams 04/22/17 22:46 Taken LUMBAR SPINE 2-VIEWS [RAD] Stat Exams 04/22/17 22:47 Taken THORACIC SPINE [RAD] Stat Exams 04/22/17 22:46 Taken Hydromorphone [Dilaudid] Med 04/22/17 23:47 Discontinued 2 mg IM NOW ONE Promethazine [Phenergan] Med 04/22/17 23:47 Discontinued 25 mg IM NOW ONE - REASSESSMENT Reassessment #1 Time Reassessed: 01:06 (pt now sleeping after pain shot) Status: improving - XRAY 1 XRAY Study: Thoracic Spine Impression: Normal XRAY Interpretation: old compression fx of lower T-Spine 2 XRAY Study: Lumbar Spine XRAY Interpretation: old fx noted and kassidy noted normal otherwise - CT/MRI 1 CT Study: Head Impression: Normal CT Results: NAD Departure - Departure Time of Disposition Decision: 01:06 DIAGNOSIS: Fall Qualifiers: Encounter type: initial encounter Qualified Code(s): W19.XXXA - Unspecified fall, initial encounter Back contusion Qualifiers: Encounter type: initial encounter Laterality: unspecified laterality Qualified Code(s): S20.229A - Contusion of unspecified back wall of thorax, initial encounter Disposition: HOME 01 Certified Medical Emergency: Emergent Condition: Good Additional Freetext Instructions: ED Follow Up Instructions: You have been treated by a care provider in the Emergency Department. These instructions are being provided to you so you can have an understanding of how to care for yourself upon discharge. Upon discharge from the Emergency Department, you are responsible for making arrangements for follow-up care by a physician of your choice. Take all prescribed medications as directed. Return to the Emergency Department immediately for any new or worsening symptoms. You may call the Physician Referral phone number at [phone] to obtain a list of Physicians who are taking new patients. Prescriptions: Hydrocodone/Acetaminophen [Moira 7.5-325 Tablet] 1 each PO Q4-6H PRN PRN #20 tablet PRN Reason: Pain Referrals and Follow-Ups: Abdi Huddleston MD [Primary Care Provider] - - Critical Care Note This patient required my direct & personal management of CC.: No This chart was documented by the indicated scribe, (Regla Morris Scribe) and accurately reflects the services I performed and decisions made by me, Keaton Naidu MD, as attested by the provider's signature.
--- NOTE | 2017-04-23 07:13 | Diag Imaging Result Doc PS360 ---
HEAD/C-SPINE W/O CONTRAST - 04/22/2017 INDICATION: head injury/pain TECHNIQUE: A CT dose reduction protocol was used. COMPARISON: 03/19/2017 FINDINGS: Head CT: Stable chronic microvascular disease. 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 No intracranial mass or hemorrhage. The skull is intact. The sinuses are clear. Cervical spine: Stable anterior fusion plate at C6-C7. Alignment is anatomic. No fracture or subluxation. There are moderate pleural effusions. There is probably pulmonary edema in the lung apices. IMPRESSION: 1. No acute disease in the head. 2. No acute cervical spine injury. 3. Pulmonary edema and moderate pleural effusions. Electronically signed by Rishi Alonso 04/23/2017 7:11 AM
--- NOTE | 2017-04-23 07:35 | Diag Imaging Result Doc PS360 ---
EXAM: LUMBAR SPINE 2-VIEWS HISTORY: fall, back pain TECHNIQUE: AP and lateral COMMENT: There is a Marquez kassidy on the left between T12 and L5. There is a hook on the right side at the L5 level without the kassidy attached. There is also a wire suture on the left side at the L1 level. There is loss of height of the L2 vertebral body anteriorly and this is also true of T12. There is generalized osteopenia. The orthopedic hardware has not changed since the topogram of 07/03/2014. The anterior wedging of the T12 vertebral body was not present at that time. The changes at L2 were present. There is fecal impaction in the rectum. IMPRESSION: Osteoporosis with compression of the T12 and L2 vertebral bodies, the former of which was not present on 07/03/2014. Postsurgical changes. Severe constipation. Electronically signed by Jesse Hall 04/23/2017 7:33 AM
--- NOTE | 2017-04-23 07:38 | Diag Imaging Result Doc PS360 ---
EXAM: THORACIC SPINE HISTORY: fall back pain TECHNIQUE: AP and lateral four views COMMENT: There is generalized osteopenia. There is anterior wedging of T12 which was not visible on the previous chest of 11/13/2016. There is multilevel anterior osteophyte formation. The pedicles appear to be intact. Otherwise, there is no evidence of acute fracture or subluxation. IMPRESSION: Osteoporosis with anterior compression of T12. This was not present in 2014 and is clearly worse since 2016. No more recent previous studies are available for comparison. Electronically signed by Jesse Hall 04/23/2017 7:36 AM
[2017-04-23] MEDS ORDERED: HEPARIN ONE (10:12)
[2017-04-23] MEDS ORDERED: NS 2,000 ML ONE (10:12)
--- NOTE | 2017-04-23 15:56 | PROGRESS NOTE ---
DATE: 04/23/2017 SUBJECTIVE: Mr. New is resting quietly though he has lower back pain. He is on hemodialysis. OBJECTIVE: Patient's vital signs are stable. He is currently on a 2 K potassium bath. Vital signs are stable. Physical exam has been performed. No indications of any changes since this consult has been dictated. ASSESSMENT AND PLAN: 1. End-stage renal disease. Patient is currently on hemodialysis per his routine prescription. He is on a 2 K bath. He is to dialyze for 3.5 hours. We have set his goal for 2.3 to 2.5 L which is to pull him back to his dry weight. 2. Electrolytes. No indications for any changes at this time. We will continue to monitor and follow. I would to thank you for allowing us to follow with this patient. Seen, data reviewed, discussed with Aissatou Purcell on 04/23/17. I agree with the above assessment and plan of care. rg Dictated by ANTOLIN Zheng for Juve Cheatham MD cc: ANTOLIN Zheng MD Scott A. Matthews, MD MTDD
--- NOTE | 2017-04-23 16:05 | CONSULTATION ---
DATE OF CONSULTATION: 04/23/2017 REASON FOR ADMISSION: Recent fall with loss of balance after opening the refrigerator. Patient had hit his hand and his back with severe back pain. REASON FOR CONSULT: End-stage renal disease with assistance with medical management. HISTORY OF PRESENT ILLNESS: Mr. New is a 76-year-old white male who is known to our outpatient services for hemodialysis on Thursday, , Thursday at the [facility]. Subsequently, patient had fallen yesterday evening and due to him being on anticoagulation and his recent fall he was brought by ambulance to the emergency department. He complained of severe back pain. He had left upper hand pain with some bruising noted. Patient was treated for pain initially in the emergency room. Secondary to that he became hard to arouse. He was unable to go to his outpatient dialysis treatment today and due to his altered mental status and recent fall after talking with his primary care physician it was felt that they would go ahead and keep Mr. New for the next 24 hours observation and for hemodialysis treatment. Mr. New does remain confused. He does deny any chest pain. No increased work of breathing. He states that his left arm is hurting. He states that his lower back is giving him a lot of pain. He denies any nausea, vomiting. No diarrhea that he can recollect. The patient had a lumbar spine abdomen and chest CT which were essentially negative but also indicating possible pulmonary infiltrate. No acute disease or bleed noted. CT of the head was negative. PAST MEDICAL HISTORY: Coronary artery disease, hypertension, end-stage renal disease with dialysis on Thursday, , Thursday. He has a history of dementia. Anemia of chronic disease. 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 Patient has COPD and peripheral vascular disease, along with hyperlipidemia and hyperparathyroidism, coronary artery disease, as noted. PREVIOUS SURGICAL HISTORY: Previous tunnel catheter placement. He has an AV fistula noted to the left forearm. ALLERGIES: Patient's allergies are noted to codeine and lisinopril. SOCIAL HISTORY: He is a former smoker. He lives with his spouse. His family is attentive to his care. Family history is noncontributory. REVIEW OF SYSTEMS: Times 10 is noted best obtained per patient with pertinent positives listed above in the HPI. PHYSICAL EXAM: His temperature is 96.6 degrees, blood pressure 117/74, heart rate 112, respirations are 16. He is on a 50% Ventimask. Last recorded saturation 99%. He has had 0 in and 0 out. He is in the process of having 2.3 L removed on dialysis at this time. His labs have not been drawn. His hemoglobin routinely has been stable. As noted his head and C-spine without contrast showed no acute disease with pulmonary edema and moderate pleural effusions. PHYSICAL EXAMINATION: General: This is a 76-year-old elderly white male. He appears chronically ill. He is in mild distress secondary to back pain. Skin: Warm and dry. HEENT: Normocephalic, atraumatic. He has RM. Mucous membranes are dry. Neck: Supple. Trachea midline. No JVD evident. Cardiovascular: He is regular rate and rhythm. He has a soft murmur. No gallop. Lungs: Clear to auscultation anterior. Remains on O2. Equal excursion. Abdomen: Round, soft, nontender. Positive bowel sounds. Back: Does show positive tenderness upon palpation. No abrasion noted upon inspection. Genitourinary: Not inspected. Minimal void with dialysis assist. Neurological: Patient remains confused with a known history of dementia. He is able to assist with exam. ASSESSMENT AND PLAN: 1. End-stage renal disease. Patient is due for his routine dialysis treatment. He is currently on dialysis at this time. 2. Recent fall with negative CT of the head and C-spine negative lumbar spine for acute disease. He has been treated with pain medication and is to be admitted for further observation. 3. Electrolytes and acid-base balance. These are stable. 4. Anemia. This is stable previously with no new labs indicated. 5. Fall. This is being followed by his primary care with negative scans. I would like to thank you for allowing us to follow with this patient. Seen, data reviewed, discussed with Aissatou Purcell on 04/23/17. I agree with the above assessment and plan of care. rg Dictated by ANTOLIN Zheng for Juve Cheatham MD cc: ANTOLIN Zheng MD Scott A. Matthews, MD [facility]ITALGhada
[2017-04-23] MEDS ORDERED: TYLENOL PO PRN (19:53)
[2017-04-23] MEDS ORDERED: ZOFRAN PO PRN (19:53)
--- NOTE | 2017-04-23 20:46 | HISTORY AND PHYSICAL ---
PRIMARY CARE PHYSICIAN: Abdi Huddleston MD. CHIEF COMPLAINT: Intractable lumbar spine pain, alteration of mental status. HISTORY OF PRESENT ILLNESS: A 76-year-old, white male with a complicated past medical history presents for evaluation of above-mentioned symptoms. Current history of present illness began last night at approximately 10 p.m. Patient's states that he walked into the kitchen and fell backwards striking his head against the cabinet. Upon falling, patient complained of profound low back pain. The patient's attempted to assist him to his feet, but was unable. She contacted EMS and patient was transported to the emergency department for further evaluation and management. Upon arrival a full evaluation was pursued. Patient was found to have a T12 compression fracture. 2 mg of Dilaudid and 25 mg of Phenergan were provided. Unfortunately, this caused significant somnolence. 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 By morning, because of his persistent somnolence and alteration of mental status, I was contacted for admission. In addition, with his somnolence, patient developed hypoxia requiring oxygen supplementation. Patient's orders for admission were provided. Patient was due for dialysis. Dialysis was performed this afternoon without incident. This evening, patient's overall condition has improved somewhat. He is arousable and interactive. He continues to require oxygen supplementation. He denies fevers, chills, nausea, vomiting, shortness of breath, or chest discomfort. The patient's lumbar spine pain is present, but stable. Of note, patient's denies him having a syncopal episode. He denies neurological deficits to the lower extremities. The patient denies decreased strength to the lower extremities. PAST MEDICAL HISTORY: 1. Abnormal electrocardiogram with short [place] interval. 2. Abnormal skin examination with multiple actinic keratoses and seborrheic keratoses. 3. Progressive dementia. 4. Bilateral carotid artery disease. 5. Cervical spine disease status post surgical fusion in 2005. 6. Cholelithiasis status post cholecystectomy in 2005. 7. Chronic kidney disease requiring hemodialysis. 8. Chronic constipation. 9. Hiatal hernia. 10. Increased fall risk secondary to unsteady gait. 11. Benign prostatic hypertrophy. 12. Reflux disease. 13. Hypertension. 14. Hypertriglyceridemia. 15. Hyperlipidemia. 16. 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 17. Ischemic heart disease. 18. Valvular heart disease. 19. Low back pain. 20. Erectile dysfunction. 21. Osteoarthritis. 22. Obstructive sleep apnea. 23. Peripheral vascular disease. CURRENT MEDICATIONS: 1. Acetaminophen 650 mg every 4 hours as needed. 2. Citalopram 40 mg daily. 3. Plavix 75 mg daily. 4. Famotidine 20 mg twice daily. 5. Imdur 30 mg daily. 6. Metoprolol 50 mg twice daily. 7. Zofran 4 mg every 4-6 hours as needed. 8. Ranexa 500 mg twice daily. 9. Exelon 1.5 mg twice daily. 10. Simvastatin 40 mg at bedtime. ALLERGIES: Patient states he is allergic to Aricept, codeine, Cozaar, Darvocet-N 100, and lisinopril. SOCIAL HISTORY: Patient is a former smoker having smoked 1-1/2 packs per day for 37 years. He quit in 1987. He denies alcohol or illicit drug use. 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 He enjoys football. He does not exercise routinely. FAMILY HISTORY: Patient's father passed at age 77 secondary to complications of coronary artery disease. Patient's mother passed at age 95 secondary to complications of colon cancer. She had a history of leukemia. REVIEW OF SYSTEMS: A 12 point review of systems was performed. Pertinent positives and negatives noted in history present illness. PHYSICAL EXAMINATION: VITAL SIGNS: Temperature 98.7 degrees, heart rate 115, respirations of 16, blood pressure is 135/63. GENERAL: Chronically ill appearing, in no acute distress. HEENT: Normocephalic, atraumatic. Pupils equal, round, reactive to light. Extraocular muscles intact. Sclerae anicteric. Reedy conjunctivae. Oral and nasopharynx clear without exudate. NECK: Supple. No lymphadenopathy. No thyromegaly. No bruits auscultated. CARDIOVASCULAR: Regular rate and rhythm. No significant murmurs, rubs, or gallops. PULMONARY: Crackles at bilateral bases. Adequate air movement. ABDOMEN: Soft, nontender, nondistended. Positive bowel sounds. EXTREMITIES: Moves all extremities well. No significant clubbing, cyanosis, or edema. NEUROLOGIC EXAMINATION: Cranial nerves 2 through 12 grossly intact. Motor and sensory grossly intact. PSYCHOLOGIC EXAMINATION: Appropriate. MUSCULOSKELETAL EXAMINATION: Reveals pain to palpation of the lower spinous processes. LABORATORY DATA: 1. None. 2. X-ray of the lumbar and thoracic spine revealed osteoporosis with compression fractures of T12 and L2 vertebral bodies, the former of which was not present in 2013. 3. CT scan of the head and cervical spine reveals no acute disease. ASSESSMENT AND PLAN: A 76-year-old white male with a very complicated past medical history as noted presents for evaluation of intractable lumbar spine pain. The patient was treated in the emergency department, but unfortunately developed significant somnolence requiring oxygen supplementation. Patient will be admitted to the hospital for full evaluation and management of alteration of mental status with associated T12 compression fracture. 1. Admit to General Medicine. 2. Alteration of mental status - The patient has baseline dementia. Unfortunately, with Phenergan and Dilaudid therapy, patient became significantly altered and somnolent. As above, patient was monitored in the emergency department but it was ultimately felt hospital observation was most appropriate. This evening, patient is slowly improving. We will continue to hold any sedating agents at present time. 3. Hypoxia - I suspect this is secondary to decreased respiratory drive in the setting of significant somnolence. We will continue oxygen per protocol. We will encourage aspiration precautions. We will follow this closely as well. 4. T12 compression fracture - At the present time, pain is controlled. As pain returns, we will plan to initiate physical therapy. We will provide low-dose Percocet. We will follow this closely as well. 5. End-stage renal disease - The patient is status post hemodialysis today by Dr. Cheatham. We will remain aware. We will plan to check labs in the morning. 6. Hypertension - We will continue patient on his home medications. 7. Coronary artery disease - The patient has known disease. At the present time, he is asymptomatic. We will continue his optimized medical management. 8. Fluid, electrolytes, nutrition. We will monitor electrolytes, saline lock IV, renal diet 9. Prophylaxis. Patient will be placed on SCDs. cc: Abdi Huddleston MD
[2017-04-23] MEDS: EXELON PO SCH (22:20)
[2017-04-23] MEDS: PEPCID PO SCH (22:20)
[2017-04-23] MEDS: LOPRESSOR PO SCH (22:21)
[2017-04-23] MEDS: TYLENOL PO PRN (22:33)
[2017-04-23] MEDS: RANEXA PO SCH (23:58)
[2017-04-24] MEDS: TYLENOL PO PRN ×2 (05:25→18:00)
[2017-04-24 07:31] LABS: BASO% 0.4 % (0.0-0.8); EOS# 0.17 X1000 (0.0-0.7); EOS% 2.5 % (0.0-10.0); HEMATOCRIT 38.7 % (42.0-52.0); HEMOGLOBIN 12.6 g/dL (14.0-18.0); IMM GRAN# 0.02 X1000 (0.0-0.04); IMM GRAN% 0.3 % (0.0-0.5); LYMPH% 10.2 % (20.5-51.1); MANUAL DIFF NEEDED? NO; MCH 34.2 PG (27-31); MCHC 32.6 g/dL (33-37); MCV 105.2 FL (81-99); MONO# 0.74 X1000 (0.11-0.59); MONO% 10.7 % (1.7-9.3); MPV 9.9 FL (7.4-10.4); NEUT% 75.9 % (42.2-75.2); PLT 115 X1000 (130-400); RBC 3.68 XMIL (4.7-6.1)
[2017-04-24 07:45] LABS: ALBUMIN 3.2 g/dL (3.5-5.0); CALCIUM 9.1 mg/dL (8.8-10.2); POTASSIUM 3.8 mmol/L (3.5-5.1); TOTAL BILIRUBIN 0.59 mg/dL (0.20-1.00); TOTAL PROTEIN 6.1 g/dL (6.3-8.3)
[2017-04-24] MEDS ORDERED: NS 2,000 ML MISC PRN (08:18)
[2017-04-24] MEDS ORDERED: TIGHT: 0.2 ML/HR MISC PRN (08:18)
[2017-04-24] MEDS ORDERED: HEPARIN IV PRN (08:18)
[2017-04-24] MEDS ORDERED: NS 2,000 ML ONE (08:55)
[2017-04-24] MEDS ORDERED: HEPARIN ONE (08:55)
[2017-04-24] MEDS: CELEXA PO SCH (11:25)
[2017-04-24] MEDS: LOPRESSOR PO SCH ×2 (11:25→20:30)
[2017-04-24] MEDS: EXELON PO SCH ×2 (11:25→20:30)
[2017-04-24] MEDS: PEPCID PO SCH ×2 (11:25→20:30)
[2017-04-24] MEDS: IMDUR PO SCH (11:25)
[2017-04-24] MEDS: RANEXA PO SCH ×2 (11:25→20:30)
[2017-04-24] MEDS: PLAVIX PO SCH (11:25)
--- NOTE | 2017-04-24 11:51 | PROGRESS NOTE ---
DATE: 04/24/2017 TIME SEEN: 0750 hours. SUBJECTIVE: Mr. New is resting quietly in bed. His is at his bedside. He remains confused. He denies chest pain or increased work of breathing. VITAL SIGNS: His most recent vital signs: Temperature 98.4 degrees, blood pressure 136/67, heart rate 97, respirations are 18. He is on 4 L nasal cannula. Last recorded saturation is 95%. He has had 360 in; he has had 2300 out on previous hemodialysis yesterday evening. LABORATORY DATA: This a.m., sodium 138, potassium 3.8, chloride 96, CO2 28, BUN 28, creatinine 3.7, glucose 103. Anion gap is 14. Calcium 9.1, albumin 3.2. White count 6.89 , hemoglobin 12.6, hematocrit 38.7, with a platelet count of 115. OBJECTIVE: General: On physical exam, this is a 76-year-old white male. He appears chronically ill. He is in no acute distress. Skin: Warm and dry. HEENT: Normocephalic, atraumatic. Conjunctiva is pale. He has RM. Mucous membranes moist. Neck: Supple. Trachea midline. Positive JVD. Cardiovascular: Regular rate and rhythm. No murmur or gallop appreciated. Lungs: Clear to auscultation anterior. Equal excursion. Abdomen: Soft, nontender. Positive bowel sounds. Extremities: Continue with 2+ lower extremity edema. Integumentary : Not inspected. Minimal void with dialysis assist. Neurological: Alert and oriented to person and to place. ASSESSMENT AND PLAN: 1. End-stage renal disease. Patient had his routine dialysis treatment yesterday secondary to positive jugular venous distention and lower extremity swelling with requirement of oxygenation today. We will plan for 2 hours of ultrafiltration. We will attempt to pull 2-3 liters today and plan for his routine dialysis treatment in the morning. The patient is discharged. His has been instructed to take him to dialysis. 2. Electrolytes and acid-base balance. These remain stable. 3. Anemia. This is at target. 4. Altered mental status. This does continued, although patient has underlying dementia. I would like to thank you for allowing us to follow with this patient. Seen, data reviewed, discussed with Aissatou Purcell on 04/23/17. I agree with the above assessment and plan of care. rg Dictated by ANTOLIN Zheng for Juve Cheatham MD cc: ANTOLIN Zheng MD Scott A. Matthews, MD [facility] CENTERGhada
[2017-04-24] MEDS: PERCOCET-5 PO PRN (12:24)
--- NOTE | 2017-04-24 19:14 | PROGRESS NOTE ---
DATE: 04/24/2017 SUBJECTIVE: Overall, patient's condition has improved somewhat from yesterday. He is having decreasing shortness of breath. His mental status is approaching his baseline. He does remain somnolent, although this is improving. He has developed considerable pain associated with his T12 compression fracture. He currently is being treated with oral medications with moderate results. He denies fevers, chills, nausea, vomiting, or chest discomfort. He remains very weak. OBJECTIVE: Vital signs: T-max 98.4 degrees, heart rate 88-110, respirations 17-19, blood pressure 119-136 over 64-73. General: Chronically ill appearing, no acute distress. Cardiovascular: Regular rate and rhythm. No significant murmurs, rubs, or gallops. Pulmonary: Crackles at bilateral bases. Abdomen: Soft, nontender, nondistended. Positive bowel sounds. Extremities: Moves all extremities well. No significant clubbing, cyanosis, or edema. Dermatologic: Evaluation reveals multiple ecchymoses. LABORATORY DATA: White blood cell count 6.89, hemoglobin 12.6, hematocrit 38.7, platelet count 115,000. Sodium 138, potassium 3.8, chloride 98, bicarb 28, BUN 28, creatinine 3.7, glucose 103, calcium 9.1, total bilirubin 0.59, total protein 6.1, albumin 3.2, alkaline phosphatase 108, AST 32, ALT 21. ASSESSMENT AND PLAN: 1. Alteration of mental status-the patient's mental status is approaching baseline. I suspect this was medication induced. He does continue to have some somnolence, but overall is improving. We will follow this closely. 2. Hypoxia-the patient was taken for ultrafiltration today. More fluid was removed. His oxygenation is slowly improving. He has titrated off of oxygen supplementation this evening. 3. T12 compression fracture-unfortunately, patient's pain has increased. Physical therapy was initiated. For now, we will continue symptomatic management with Percocet therapy. We will continue physical therapy. 4. Profound weakness-unfortunately, patient was unable to ambulate significant distances with physical therapy today. Prior to hospitalization, patient was ambulating independently. We will continue physical therapy. Should patient not achieve significant improvement, we will need to consider rehabilitation. 5. End-stage renal disease-we will defer management to Dr. Cheatham. 6. Hypertension-patient's blood pressure is controlled on his current regimen. 7. Coronary artery disease-patient has known disease. We will continue to optimize his medical management. 8. Disposition-at this point, patient continues to require custodial care in the hospital setting. We will plan discharge home once appropriate. cc: Abdi Huddleston MD
[2017-04-25] MEDS: TYLENOL PO PRN ×2 (03:29→16:36)
[2017-04-25] MEDS ORDERED: NS 2,000 ML MISC PRN (07:31)
[2017-04-25] MEDS ORDERED: TIGHT: 0.2 ML/HR MISC PRN (07:31)
[2017-04-25] MEDS ORDERED: HEPARIN IV PRN (07:31)
[2017-04-25] MEDS ORDERED: HEPARIN ONE (08:18)
[2017-04-25] MEDS ORDERED: NS 2,000 ML ONE (08:18)
[2017-04-25 08:31] LABS: ALBUMIN 3.5 g/dL (3.5-5.0); CALCIUM 9.7 mg/dL (8.8-10.2); POTASSIUM 4.4 mmol/L (3.5-5.1)
[2017-04-25] MEDS ORDERED: PERCOCET-5 ONE (10:16)
[2017-04-25] MEDS: PERCOCET-5 PO PRN (10:19)
--- NOTE | 2017-04-25 11:20 | PROGRESS NOTE ---
DATE: 04/25/2017 SUBJECTIVE: Mr. New is resting quietly in bed. He is on hemodialysis he is tolerating this well per tunnel catheter. He has no complaints except for lower to mid back pain. Denies chest pain and increased work of breathing. OBJECTIVE: His most recent vital signs are temperature 98.3 degrees, blood pressure 105/66, heart rate 101, respirations are 14. He is on room air. Last recorded saturation is 91%. He remains on room air at this time. He has had 240 in. He has had 2 L out yesterday with a total of 4.3 L removed on dialysis in the last 48 hours. LABORATORY DATA: Sodium 137, potassium 4.4, chloride 93, CO2 28, BUN 48, creatinine 4.8, glucose 105, anion gap 16, calcium 9.6, phosphorus 4.2, albumin 3.5. He has a white count on the of 6.89 with a hemoglobin 12.6, platelets were 115, hematocrit 38.7. PHYSICAL EXAMINATION: General: This is a 76-year-old white male. He is appears chronically ill. He is in no acute distress. Skin: Warm and dry. HEENT: Normocephalic, atraumatic. Conjunctiva is pale. He has RM. Mucous membranes moist. Neck: Supple. Trachea midline. No JVD. Cardiovascular: Regular rate and rhythm. No murmur or gallop appreciated. Lungs: Clear to auscultation anteriorly. Equal excursion. Integumentary: No rashes or lesions evident. Continues with tunnel catheter to the right chest wall. Genitourinary: Not inspected. Minimal void with dialysis assist. Neurological: He is alert to person and forgetful to place and events. ASSESSMENT AND PLAN: 1. End-stage renal disease. This is patient's routine dialysis treatment day. We will place him on a 3 K bath. We will challenge patient's dry weight. We will leave him on for 3-1/2 hours as tolerated. 2. Electrolytes. These are stable. 3. Acid-base balance. This is stable. 4. Anemia. This is at target. 5. Altered mental status. Patient has underlying dementia. No indications for changes. 6. Severe pain requiring pain medication. This is followed by Dr. Huddleston. I would like to thank you for allowing us to follow with this patient. Dictated by ANTOLIN Zheng for Juve Cheatham MD cc: ANTOLIN Zheng MD Scott A. Matthews, MD
[2017-04-25] MEDS: IMDUR PO SCH (12:07)
[2017-04-25] MEDS: PLAVIX PO SCH (12:11)
[2017-04-25] MEDS: RANEXA PO SCH ×2 (12:11→21:03)
[2017-04-25] MEDS: PEPCID PO SCH ×2 (12:11→21:03)
[2017-04-25] MEDS: LOPRESSOR PO SCH ×2 (12:11→21:03)
[2017-04-25] MEDS: EXELON PO SCH ×2 (12:12→21:03)
[2017-04-25] MEDS: CELEXA PO SCH (12:12)
--- NOTE | 2017-04-25 13:24 | PROGRESS NOTE ---
DATE: 04/25/2017 SUBJECTIVE: This morning, the patient was transported to hemodialysis. He tolerated this procedure well. This afternoon, unfortunately, the patient states he feels poorly. Patient complains of profound weakness as well as significant lumbar spine pain. He denies fevers, chills, nausea, vomiting, shortness of breath, or chest discomfort. He has titrated off of oxygen therapy. OBJECTIVE: Vital Signs: T-max 98.3 degrees, heart rate 80 to 100, respirations 15-21, blood pressure 109 to 140 over 58 to 73. General: Chronically ill-appearing, in no acute distress. Cardiovascular: Regular rate and rhythm. No significant murmurs, rubs, or gallops. Pulmonary: Crackles at bilateral bases. Adequate air movement. Abdomen: Soft, nontender, nondistended. Positive bowel sounds. Extremities: Moves all extremities well. No significant clubbing, cyanosis, or edema. Dermatologic: Evaluation reveals multiple ecchymoses. LABORATORY DATA: Sodium 137, potassium 4.4, chloride 93, bicarbonate 28, BUN 48, creatinine 4.8, glucose 105, calcium 9.7, phosphorus 4.2, albumin 3.5. ASSESSMENT AND PLAN: 1. Alteration of mental status - The patient's mentation has returned to baseline. This likely was medication-induced. For now, we will follow. 2. Hypoxia - This likely was secondary to a volume overload state. He has achieved resolution to baseline. He no longer requires oxygen supplementation. 3. T12 compression fracture - This is quite concerning. We are having difficulty with pain management. For now, we will continue adjusting his pain medications. We will continue physical therapy. I am concerned that he may require rehabilitation at discharge. 4. Profound weakness - This is significant. Patient is unable to rise from the bed alone. We will continue physical therapy. As above, we may consider rehabilitation at discharge. 5. End-stage renal disease - We will defer management to Dr. Cheatham. 6. Hypertension - The patient's blood pressure is reasonably controlled on his current regimen. 7. Coronary artery disease - The patient has longstanding disease. He is optimized medically. He is asymptomatic. 8. Disposition - At this point, patient continues to require jail care in a hospital setting. We will plan discharge home once appropriate. cc: Abdi Huddleston MD
[2017-04-25] MEDS ORDERED: DULCOLAX PO ONE (15:57)
[2017-04-25] MEDS ORDERED: MIRALAX PO ONE (15:58)
[2017-04-25] MEDS: ZOCOR PO SCH ×2 (21:03)
[2017-04-26] MEDS: TYLENOL PO PRN ×4 (05:09→20:44)
[2017-04-26 06:46] LABS: ALBUMIN 3.4 g/dL (3.5-5.0); CALCIUM 9.5 mg/dL (8.8-10.2); POTASSIUM 3.8 mmol/L (3.5-5.1)
[2017-04-26] MEDS: RANEXA PO SCH ×2 (09:48→20:40)
[2017-04-26] MEDS: CELEXA PO SCH (09:48)
[2017-04-26] MEDS: IMDUR PO SCH (09:48)
[2017-04-26] MEDS: LOPRESSOR PO SCH ×2 (09:48→20:40)
[2017-04-26] MEDS: EXELON PO SCH ×2 (09:48→20:40)
[2017-04-26] MEDS: PLAVIX PO SCH (09:49)
[2017-04-26] MEDS: PEPCID PO SCH ×2 (09:49→20:40)
--- NOTE | 2017-04-26 10:27 | PROGRESS NOTE ---
DATE: 04/26/2017 SUBJECTIVE: Unfortunately, patient does remain somewhat somnolent today. He is easily arousable. Yesterday, patient remained very weak throughout the day. Physical therapy attempted to work with him, although he was noncompliant. The patient's states his p.o. intake is marginal. She is having difficulty assisting with even sitting up in the bed. He continues to have intermittent lumbar spine pain. He is being treated with as needed Tylenol or oxycodone. He denies fevers, chills, nausea, vomiting, shortness of breath, or chest discomfort. He no longer requires oxygen supplementation. OBJECTIVE: Vital Signs: T-max 97.8 degrees, heart rate 88-95, respirations 16-21, blood pressure 103-140/48-61. General: Chronically ill appearing, no acute distress. Cardiovascular: Regular rate and rhythm. No significant murmurs, rubs, or gallops. Pulmonary: Crackles at bilateral bases. Adequate air movement. Abdomen: Soft, nontender, nondistended. Positive bowel sounds. Extremities: Moves all extremities well. No significant clubbing, cyanosis, or edema. Dermatologic: Evaluation reveals no evidence of rash. Laboratory Data: Sodium 141, potassium 3.8, chloride 96, bicarb 27, BUN 44, creatinine 4.5, glucose 88, calcium 9.5, phosphorus 4.1, albumin 3.4. ASSESSMENT AND PLAN: 1. Alteration of mental status-the patient has returned to his baseline underlying dementia. The initial alteration was likely medication induced. We will remain aware. 2. Hypoxia-this is likely secondary to a volume overload state. With hemodialysis and ultrafiltration, patient has achieved improvement. His oxygenation is acceptable on room air. 3. T12 compression fracture-unfortunately, patient continues to have considerable pain. In addition, this has precipitated profound weakness and difficulty with ambulation. We will continue medications as noted. We will continue physical therapy as described below. 4. Profound weakness-I am very concerned in this regard. Unfortunately, he is unable to stand and transfer without significant assistance at present time. Prior to admission with the compression fracture, he was walking independently. For now, we will continue physical therapy. We may need to consider rehabilitation at discharge. 5. End-stage renal disease-we will continue hemodialysis per Dr. Cheatham. 6. Hypertension-patient's blood pressure is reasonably controlled on his current regimen. 7. Coronary artery disease-the patient has longstanding disease. We will continue his optimum medical management. 8. Disposition-at this point, patient continues to require usp care in a hospital setting. Depending on his progress in the morning, we will consider director social service consult for rehabilitation placement. cc: Abdi Huddleston MD
--- NOTE | 2017-04-26 10:55 | PROGRESS NOTE ---
DATE: 04/26/2017 SUBJECTIVE: Patient is resting in bed. He becomes agitated to verbal and tactile stimuli. He will follow commands. OBJECTIVE: Vital Signs: Temperature 97.5 degrees, pulse 88, respiratory rate 20, blood pressure 103/48. Intake not measured. Output 1.4 L. General: Elderly gentleman, resting in bed. Chronically ill-appearing. Again, agitated to verbal and tactile stimuli. HEENT: Normocephalic, atraumatic. Oral mucosa moist. Neck: Supple. Trachea midline without JVD. Cardiovascular: Regular rate and rhythm. Pulmonary: Equal excursion. He is clear bilaterally. Abdomen: Soft, with positive bowel sounds. : Not inspected. He has minimal void with hemodialysis assist. Extremities: No clubbing, cyanosis or edema. Integumentary: Skin is warm and dry. LAB DATA: Sodium 141, potassium 3.8, chloride 96, CO2 27, BUN 44, creatinine 4.5, calcium 9.5, phosphorus 4.1, albumin 3.4. ASSESSMENT AND PLAN: 1. End-stage renal disease management. He is on a Thursday, , Thursday schedule. We will plan to dialyze him again Thursday as per his prescription, unless other indications arise that would necessitate it on Thursday. 2. Electrolytes, acid-base balance. These are in target. 3. Anemia. I do not have labs this morning but this has been stable and in target. 4. Altered mental status, underlying dementia. Followed by primary. 5. Pain control. Followed by Dr. Huddleston. Dictated by ANTOLIN Woods for Juve Cheatham MD cc: MD Abdi Cameron MD MTDD
[2017-04-26] MEDS: ZOCOR PO SCH (20:40)
[2017-04-27] MEDS: TYLENOL PO PRN ×3 (05:20→20:38)
[2017-04-27 08:22] LABS: ALBUMIN 3.3 g/dL (3.5-5.0); CALCIUM 9.5 mg/dL (8.8-10.2); POTASSIUM 4.3 mmol/L (3.5-5.1)
[2017-04-27] MEDS: CELEXA PO SCH (08:44)
[2017-04-27] MEDS: RANEXA PO SCH ×2 (08:44→20:38)
[2017-04-27] MEDS: PEPCID PO SCH ×2 (08:44→20:38)
[2017-04-27] MEDS: LOPRESSOR PO SCH ×2 (08:44→20:38)
[2017-04-27] MEDS: IMDUR PO SCH (08:44)
[2017-04-27] MEDS: EXELON PO SCH ×2 (08:44→20:38)
[2017-04-27] MEDS: PLAVIX PO SCH (08:44)
--- NOTE | 2017-04-27 09:27 | Diag Imaging Result Doc PS360 ---
CHEST-PORTABLE - 04/27/2017 INDICATION: fpc placement TECHNIQUE: COMPARISON: 03/19/2017 FINDINGS: Stable cardiomegaly. Stable surgical changes of prior valve replacement. There is overall improvement in the diffuse interstitial pattern compatible with improving pulmonary edema. There is persistent pulmonary vascular congestion. There are basilar pleural effusions. Stable basilar atelectasis or infiltrate. IMPRESSION: Improvement in the pulmonary edema. Electronically signed by Rishi Alonso 04/27/2017 9:25 AM
[2017-04-27] MEDS ORDERED: DULCOLAX PR ONE (10:51)
--- NOTE | 2017-04-27 11:22 | PROGRESS NOTE ---
DATE: 04/27/2017 TIME SEEN: 0750. SUBJECTIVE: Mr. New is resting quietly in bed. His family is at his bedside, his and his 2 sons. He is in no acute distress. He denies any pain. OBJECTIVE: Vital signs: His most recent vital signs, temperature 97.4 degrees, blood pressure 109/58, heart rate 83, respirations 18. He is on room air. Last recorded saturation is 97%. He has had 460 in. He has had 0 out with dialysis in the a.m. Labs: His most recent labs: Sodium 138, potassium 4.3, chloride 92, CO2 27, BUN 63, creatinine 5.4, glucose 96. His anion gap is 19, calcium 9.5, phosphorus 3.6, albumin 3.3. His previous hemoglobin is 12.6 on the 2nd. Chest x-ray done this a.m. shows improvement of pulmonary edema. PHYSICAL EXAMINATION: General: This is a 76-year-old white male. He is in no acute distress, though he is chronically ill in appearance. Skin: Warm and dry. HEENT: Normocephalic, atraumatic. Conjunctivae pale. He has RM. Mucous membranes moist. Neck: Supple. Trachea midline. No JVD. Cardiovascular: Regular rate and rhythm. He has a soft systolic murmur. Otherwise no gallop. Lungs: Clear to auscultation anteriorly. Equal excursion. He remains on room air. Abdomen: Round, soft, nontender. Positive bowel sounds. Genitourinary: Not inspected. Minimal void with dialysis assist. Integumentary: No rashes or lesions evident. Neurological: He is alert to person and to place. Loss of most recent events. ASSESSMENT AND PLAN: 1. End-stage renal disease. Patient normally dialyzes on Thursday, , Thursday schedule. We will plan for dialysis in the a.m. We have spoken to Dr. Huddleston in preparation for patient discharge to outpatient rehab tomorrow after dialysis. 2. Electrolytes and acid-base balance. These are at target. 3. Anemia. This has been stable. 4. Altered mental status with history of dementia. 5. Continued pain. This is followed by Dr. Huddleston. I would like to thank you for allowing us to follow with this patient. Dictated by ANTOLIN Zheng for Juve Cheatham MD cc: ANTOLIN Zheng MD Scott A. Matthews, MD
[2017-04-27] MEDS: ZOCOR PO SCH (20:38)
--- NOTE | 2017-04-27 21:45 | PROGRESS NOTE ---
DATE: 04/27/2017 SUBJECTIVE: Patient's overall condition continues to very slowly improve. He continues to have considerable low back pain. This is inhibiting his ability to ambulate. The patient remains very weak. He complains of abdominal discomfort associated with constipation today. He notes several days without a bowel movement. He denies fevers, chills, nausea, vomiting, shortness of breath, or chest discomfort. OBJECTIVE: Vital signs: T-max 97.7 degrees, heart rate 71-93, respirations 15-18, blood pressure 99-109 over 41-58. General: Chronically ill-appearing, no acute distress. Cardiovascular: Regular rate and rhythm. No significant murmurs, rubs, or gallops. Pulmonary: Clear to auscultation bilaterally. Abdomen: Soft, nontender, nondistended. Positive bowel sounds. Extremities: Moves all extremities well. No significant clubbing, cyanosis, or edema. Dermatologic: Evaluation reveals no evidence of a rash. LABORATORY DATA: Sodium 138, potassium 4.3, chloride 92, bicarb 27, BUN 63, creatinine 5.4, glucose 96, calcium 9.5, phosphorus 3.6, albumin 3.3. ASSESSMENT AND PLAN: 1. Alteration of mental status-patient has achieved improvement to his underlying baseline dementia. Initial alteration was likely secondary to narcotic intervention. We will continue to follow. 2. Hypoxia-patient has achieved improvement with removal of volume with hemodialysis. His oxygen saturation is acceptable on room air. 3. T12 compression fracture-the patient continues to have considerable pain. We will continue physical therapy. We will continue treatment with either Tylenol or Percocet. Once again, this will be followed. 4. Profound weakness-unfortunately, this persists. At this point, patient will likely require rehabilitation at discharge. We will continue to encourage activity and physical therapy. 5. End-stage renal disease-we will continue hemodialysis per Dr. Cheatham. 6. Hypertension-patient's blood pressure is reasonably controlled on his current regimen. 7. Coronary artery disease-we will continue his home medications. 8. Disposition-at this point, patient continues to require residential care in the hospital setting. We will plan discharge home once appropriate. cc: Abdi Huddleston MD
[2017-04-28 07:21] LABS: ALBUMIN 3.2 g/dL (3.5-5.0); CALCIUM 9.3 mg/dL (8.8-10.2); POTASSIUM 4.4 mmol/L (3.5-5.1)
[2017-04-28] MEDS ORDERED: HEPARIN IV PRN (07:27)
[2017-04-28] MEDS ORDERED: NS 2,000 ML MISC PRN (07:27)
[2017-04-28] MEDS ORDERED: TIGHT: 0.2 ML/HR MISC PRN (07:27)
[2017-04-28] MEDS ORDERED: NS 2,000 ML ONE (07:50)
[2017-04-28] MEDS ORDERED: HEPARIN ONE (07:50)
--- NOTE | 2017-04-28 12:36 | DISCHARGE SUMMARY ---
ADMISSION DATE: 04/24/2017 DISCHARGE DATE: 04/28/2017 ADMISSION DIAGNOSES: 1. Intractable lumbar spine pain. 2. Alteration of mental status. DISCHARGE DIAGNOSES: 1. Alteration of mental status/metabolic encephalopathy, returned to baseline. 2. Hypoxia, resolved with hemodialysis/volume removal. 3. Acute T12 compression fracture. 4. Profound weakness. 5. End-stage renal disease, present on arrival. 6. Hypertension, present on arrival. 7. Coronary artery disease, present on arrival. CONSULTATIONS: Dr. Cheatham with Nephrology was consulted for further evaluation and management of end-stage renal disease. PROCEDURES: 1. CT scan of the head was performed on 04/22/2017, which revealed no acute disease in the head. 2. CT scan of the cervical spine was performed on , which revealed no acute cervical spine injury. 3. Thoracic spine x-ray was performed on 04/22/2017, which revealed osteoporosis with anterior compression of T12. This was not present in 2013 and is clearly worse since 2015. No more recent previous studies are available for comparison. 4. Lumbar spine x-ray was performed on 04/22/2017, which revealed osteoporosis with compression fracture of T12 and L2 vertebral bodies, the former of which was not present on 07/03/2014. Post-surgical changes. Severe constipation. HISTORY AND PHYSICAL EXAMINATION: See admit note. PHYSICAL EXAMINATION PRIOR TO DISCHARGE: Vital Signs: Temperature 97.8 degrees, heart rate 54, respirations 17, and blood pressure is 122/65. General: Chronically ill appearing, in no acute distress. Cardiovascular: Regular rate and rhythm. No significant murmurs, rubs, or gallops. Pulmonary: Crackles at bilateral bases. Abdomen: Soft, nontender, nondistended. Positive bowel sounds. Extremities: Moves all extremities well. No significant clubbing, cyanosis, or edema. Dermatologic: Evaluation reveals multiple ecchymoses. LABORATORY DATA PRIOR TO DISCHARGE: Sodium 133, potassium 4.4, chloride 90, bicarbonate 26, BUN 70, creatinine 5.8, glucose 97, calcium 9.3, phosphorus 4.1, albumin 3.2. HOSPITAL COURSE: The patient was admitted as per history and physical examination. Hospital course per condition is as follows. 1. Alteration of mental status/metabolic encephalopathy - Upon admission, patient was noted to have significant alteration. This likely was secondary to a combination of acute pain and medications. With adjustments of his pain medication, in time, his mentation returned to baseline. We will follow this closely as an outpatient. 2. Hypoxia - Upon admission, patient was noted to have considerable hypoxia. This likely was secondary to volume overload state. With hemodialysis/ultrafiltration, patient has achieved adequate saturations on room air. Once again, this will be followed. 3. Acute T12 compression fracture - This was the result of injury resulting in emergency room evaluation. The patient was treated with titrating pain medications while hospitalized. Physical therapy was initiated. We will continue to follow this closely as an outpatient. Physical therapy will be continued. 4. Profound weakness - Unfortunately, patient developed profound weakness associated with his significant pain. As above, physical therapy was initiated. Unfortunately, at time of discharge, patient was not able to carry on his normal daily activities secondary to pain and extreme fall risk. For this reason, patient will be sent to rehabilitation for physical therapy. Goal is for independent ambulation, as he was prior to admission. 5. End-stage renal disease - The patient was followed by Dr. Cheatham while hospitalized. We will continue his current hemodialysis schedule. 6. Hypertension - The patient's blood pressure remained reasonably controlled while hospitalized on his home medications. 7. Coronary artery disease - The patient remained asymptomatic while hospitalized. He is optimized medically. DISCHARGE CONDITION: Stable. DISPOSITION: Discharged to rehabilitation. MEDICATIONS: 1. Acetaminophen 650 mg every 4 hours as needed. 2. Citalopram 40 mg daily. 3. Plavix 75 mg daily. 4. Famotidine 20 mg twice daily. 5. Imdur 30 mg daily. 6. Metoprolol 50 mg twice daily. 7. Zofran 4 mg every 4-6 hours as needed. 8. Ranexa 500 mg twice daily. 9. Exelon 1.5 mg twice daily. 10. Simvastatin 40 mg at bedtime. 11. Percocet 5/325 one-half to 1 tablet every 4-6 hours as needed. FOLLOWUP: Patient is to follow up with me upon discharge from rehabilitation. cc: Abdi Huddleston MD
[2017-04-28] MEDS: RANEXA PO SCH (13:02)
[2017-04-28] MEDS: PLAVIX PO SCH (13:02)
[2017-04-28] MEDS: EXELON PO SCH (13:02)
[2017-04-28] MEDS: CELEXA PO SCH (13:03)
[2017-04-28] MEDS: IMDUR PO SCH (13:03)
[2017-04-28] MEDS: PEPCID PO SCH (13:03)
[2017-04-28] MEDS: LOPRESSOR PO SCH (13:03)
[2017-04-28 13:52] VITALS: BP 104/58
--- NOTE | 2017-04-28 15:22 | PROGRESS NOTE ---
DATE: 04/28/2017 TIME SEEN: 0805. SUBJECTIVE: Mr. New is resting quietly in bed. He has had a rough night. His has been up with him most of the evening. He denies chest pain. No increased work of breathing. States just overall is not feeling well. OBJECTIVE: Vital Signs: His last temperature was 97.8 degrees, blood pressure 122/65, heart rate 54, and respirations 17. He is on room air. Last recorded saturation 96%. He has had 290. He has had zero recorded out, with need for dialysis. General: This is a 76-year-old white male. He is in no acute distress. He appears chronically ill. Skin: Warm and dry. HEENT: Normocephalic, atraumatic. Conjunctivae pale. He has RM. Mucous membranes moist. Neck: Supple. Trachea midline. No JVD. Cardiovascular: Regular rate and rhythm. He has a soft systolic murmur. No gallop appreciated. Lungs: Clear to auscultation anteriorly. Equal excursion on room air. Abdomen: Round, soft, nontender. Positive bowel sounds. Extremities: No edema. No clubbing or cyanosis. Integumentary: The patient has notable bruising to his left upper extremity, both below and above his elbow, left greater than right, with some ecchymoses noted to the right and left lower extremities. Neurological: Patient remains pleasantly confused at this time, though the nurses have had difficulty during the night. LABORATORIES: This a.m., sodium 133, potassium 4.4, chloride 90, CO2 of 26, BUN 70, creatinine 5.8, glucose 97. His anion gap is 17, calcium 9.3, phosphorus 4.1, and albumin 3.2. Previous hemoglobin 12.6 on 04/24/2017. ASSESSMENT AND PLAN: 1. End-stage renal disease. Patient is due for his routine dialysis treatment today. We will place him on a 3 K bath. He is to dialyze for 3-1/2 hours. We will attempt to pull patient to his dry weight. 2. Electrolytes, acid-base balance, and anemia. These remain stable. 3. Fall with recent altered mental status. Patient is scheduled to go to rehabilitation today. We will continue outpatient dialysis per his routine prescription. This has been discussed with Dr. Huddleston and his . I would to thank you for allowing us to follow with this patient. Dictated by ANTOLIN Zheng for Juve Cheatham MD cc: ANTOLIN Zheng MD Scott A. Matthews, MD
== END 2017-04-28 15:54 ==
LOC: SUPCPDRO → ED 22:40 → 3N 22:40
PROVIDERS: ADMIT Internal Medicine; ATTEND Internal Medicine

== ENCOUNTER 2017-05-11 17:04 | Inpatient (IN) ==
--- NOTE | 2017-05-11 17:16 | PROVIDER DOCUMENTATION ---
HPI-Respiratory General - General Stated Complaint: SOB Time Seen by Provider: 05/11/17 17:06 Source: EMS Unable to obtain history due to:: other (pt with Dementia, nurse @ dialysis center told EMS that she was too busy to talk to them) Allergies/Adverse Reactions: Patient Allergies Allergy/AdvReac Type Severity Reaction Status Date / Time meperidine HCl * Allergy Unknown Verified 03/19/17 09:47 [From Demerol] codeine AdvReac CONSTIPATIO Verified 03/19/17 09:47 N Home Medications: Home Medication List Medication Instructions Recorded Confirmed Last Taken Type Citalopram [Celexa] 40 mg PO DAILY 07/12/14 05/11/17 05/11/17 07:00 History 40 MG Ranolazine E.r. [Ranexa] 500 mg PO BID 07/12/14 05/11/17 05/11/17 07:00 History 500 MG SIMVAstatin [Zocor] 40 mg PO QHS 07/12/14 05/11/17 05/10/17 20:00 History 40 MG Ondansetron HCl [Zofran] 4 mg PO Q4-6H PRN PRN 05/01/16 05/11/17 05/11/17 07:00 History 4 MG Rivastigmine [Exelon] 1.5 mg PO BID 05/01/16 05/11/17 05/11/17 07:00 History 1.5 MG Famotidine [Pepcid] 20 mg PO BID #0 tablet 11/14/16 05/11/17 05/11/17 07:00 Rx 20 MG Metoprolol [Lopressor] 50 mg PO BID #0 tablet 11/14/16 05/11/17 05/11/17 07:00 Rx 50 MG Isosorbide Mononitrate E.r. [Imdur] 30 mg PO DAILY #0 11/29/16 05/11/17 07:00 Rx 30 MG Clopidogrel Bisulfate [Clopidogrel] 75 mg PO DAILY 04/22/17 05/11/17 05/11/17 07 :00 History 75 MG Hydrocodone/Acetaminophen [Stuart 1 each PO Q4-6H PRN PRN #20 tablet 04/23/1705/11/17 07:00 Rx 7.5-325 Tablet] 1 EACH Acetaminophen [Tylenol] 650 mg PO Q4H PRN PRN #0 tablet 04/28/17 05/11/17 07:00 Rx 650 MG Oxycodone/APAP 5 mg/325 mg 0.5 - 1 each PO Q4H PRN PRN #20 04/28/17 05/11/17 07:00 Rx [Percocet-5] tablet 0.5 - 1 EACH - History of Present Illness-Resp Nature of Presenting Problem: pt sent from dialysis center due to low O2 sat. He NL gets dialysis on T-Th- Sat. He was getting and extra treatment today for dyspnea. After tx, sat was 84. He is demented, not oriented to self, so can give no info. EMS reports that extremities were cold, and that got a pulse ox of 92 then hand was warmed Quality of Pain: reports: none Severity in ED: reports: moderate Onset/Duration: reports: unsure Timing: reports: still present Context: reports: other (dialysis pt, dementia) Modifying Factors: improves with: exertion Similar Symptoms Previously?: Yes Recently seen or treated by another doctor?: Yes Review of Systems - Adult - REVIEW OF SYSTEMS - ADULT ROS:: unobtainable per condition Constitutional: reports: no symptoms reported Past History - Adult - PAST MEDICAL HISTORY-ADULT Review of Records: reports: Medications Reviewed Major Childhood Illnesses: reports: denies history Cardiovascular: reports: CAD, HTN Respiratory: reports: denies history Gastrointestinal: reports: denies history Obstetrical/Gynecological: reports: denies history Genitourinary: reports: dialysis, ESRD Musculoskeletal: reports: denies history Neurological: reports: dementia Psychiatric: reports: depression Endocrine/Immune: reports: denies history Other Conditions: reports: denies history - PRIOR SURGERIES/PROCEDURES Surgical/Procedure History: reports: reviewed, not pertinent - IMMUNIZATION STATUS Childhood Immunizations: See Nurse Assessment Flu Vaccine: See Nurse Assessment - FAMILY HISTORY Family History: reviewed, not pertinent - SOCIAL HISTORY Smoking: non-smoker Physical Exam-General - PHYSICAL EXAM-ADULT Initial Vital Signs Reviewed: Yes - CONSTITUTIONAL General Appearance: moderate distress, slow to respond - EYES Eyes: PERRL/EOMI, pink conjunctivae - HEAD, EARS, NOSE, MOUTH & THROAT HENMT: moist mucous membranes, normal ENT inspection, pharynx normal - NECK Neck: full range of motion, supple - RESPIRATORY Respiratory: other (decreased bs @ BASES) - CARDIOVASCULAR Cardiovascular: tachycardia, systolic murmur (and valve click) - GASTROINTESTINAL (ABDOMEN) Abdominal Exam: non tender, soft - MUSCULOSKELETAL Back Exam: normal inspection, no CVA tenderness, no vertebral tenderness Extremity: normal range of motion, non-tender - SKIN Integumentary: normal color, normal turgor, warm/dry - NEUROLOGIC Neurologic: grossly normal, other (MCCALLUM well, is not oriented) - PSYCHIATRIC Psych/Mental Status: disoriented x 3. negative: normal thought content Progress - PLAN OF CARE/RESULTS Progress/Plan/Lab Results: Vital Signs - 8 hr 05/11/17 17:30 05/11/17 17:41 05/11/17 18:26 Temperature 98.4 F Pulse Rate 94 H 94 H 101 H Respiratory Rate 23 18 18 Blood Pressure 123/79 123/79 139/117 O2 Sat by Pulse Oximetry 99 99 95 Laboratory Results - last 24 hr 05/11/17 05/11/17 05/11/17 17:13 17:53 17:53 WBC 8.99 RBC 3.60 L Hgb 12.1 L Hct 37.5 L MCV 104.2 H MCH 33.6 H MCHC 32.3 L RDW Std Deviation 14.5 Plt Count 150 MPV 9.5 Immature Gran % (Auto) 0.7 H Neut % (Auto) 78.1 H Lymph % (Auto) 8.3 L Baxter % (Auto) 11.2 H Eos % (Auto) 1.4 Baso % (Auto) 0.3 Immature Gran # (Auto) 0.06 H Neut # (Auto) 7.01 H Lymph # (Auto) 0.75 L Baxter # (Auto) 1.01 H Eos # (Auto) 0.13 Baso # (Auto) 0.03 PT INR PTT (Actin FS) Specimen Type ARTERIAL Sample Site R RADIAL pH 7.49 H pCO2 43 pO2 50 L HCO3 31.3 H Base Excess 8.5 H Oxyhemoglobin 87.9 L* ABG O2 Sat (Calculated) 14.5 L ABG O2 Saturation 89.1 L ABG Carboxyhemoglobin 0.90 ABG Methemoglobin 0.5 Deep Test YES A-a O2 Difference 46.0 Total Hemoglobin 11.7 Lactate 1.00 Blood Gas Modality ROOM AIR FiO2 % 21.0 Sodium 141 Potassium 3.5 Chloride 99 Carbon Dioxide 33 Anion Gap 9 BUN 7 L Creatinine 1.5 H Estimated GFR/1.73 m2 46 BUN/Creatinine Ratio 5 Glucose 98 Calculated Osmolality 279 Calcium 8.8 Magnesium 1.7 Total Bilirubin 0.72 AST 20 ALT 14 Alkaline Phosphatase 129 H Creatine Kinase 56 Troponin T Total Protein 6.1 L Albumin 3.3 L Globulin 2.8 Albumin/Globulin Ratio 1.2 Plasma Lactate 05/11/17 05/11/17 05/11/17 17:53 17:53 17:53 WBC RBC Hgb Hct MCV MCH MCHC RDW Std Deviation Plt Count MPV Immature Gran % (Auto) Neut % (Auto) Lymph % (Auto) Baxter % (Auto) Eos % (Auto) Baso % (Auto) Immature Gran # (Auto) Neut # (Auto) Lymph # (Auto) Baxter # (Auto) Eos # (Auto) Baso # (Auto) PT 11.2 INR 1.06 PTT (Actin FS) 31.6 Specimen Type Sample Site pH pCO2 pO2 HCO3 Base Excess Oxyhemoglobin ABG O2 Sat (Calculated) ABG O2 Saturation ABG Carboxyhemoglobin ABG Methemoglobin Deep Test A-a O2 Difference Total Hemoglobin Lactate Blood Gas Modality FiO2 % Sodium Potassium Chloride Carbon Dioxide Anion Gap BUN Creatinine Estimated GFR/1.73 m2 BUN/Creatinine Ratio Glucose Calculated Osmolality Calcium Magnesium Total Bilirubin AST ALT Alkaline Phosphatase Creatine Kinase Troponin T 0.126 H Total Protein Albumin Globulin Albumin/Globulin Ratio Plasma Lactate 1.5 Orders Category Date Time Status Cardiac Monitoring DIRECTED Care 05/11/17 17:10 Active IV Insertion ORDERED Care 05/11/17 17:10 Completed Notify MD of + Sepsis Screen NOW Care 05/11/17 17:10 Active CHEST-1 VIEW [RAD] Stat Exams 05/11/17 17:10 Ordered ABG [RESP] Routine Lab 05/11/17 17:13 Completed BLOOD CULTURE [BLDCUL] Stat Lab 05/11/17 18:03 Received CBC WITH DIFF [HEME] Stat Lab 05/11/17 17:53 Completed CK PROFILE [SP CHEM] Stat Lab 05/11/17 17:53 Completed COMPREHENSIVE METABOLIC PANEL [CHEM] Stat Lab 05/11/17 17:53 Completed D-DIMER [CHEM] Stat Lab 05/11/17 17:53 Received LACTATE, PLASMA [CHEM] Stat Lab 05/11/17 17:53 Completed MAGNESIUM [CHEM] Stat Lab 05/11/17 17:53 Completed PROTIME WITH INR [COAG] Stat Lab 05/11/17 17:53 Completed PTT [COAG] Stat Lab 05/11/17 17:53 Completed TROPONIN T Stat Lab 05/11/17 17:53 Completed TYPE & SCREEN [BBK] Stat Lab 05/11/17 17:53 Received URINALYSIS W/POSS RFLX CULT-1 [URINALYSIS] Stat Lab 05/11/17 17:10 Uncollected BIPAP Stat Oth 05/11/17 17:10 Active Oxygen Device Stat Oth 05/11/17 17:10 Active Result Diagrams: 05/11/17 17:53 05/11/17 17:53 - CONSULTS/PCP/HOSPITALIST Notification #1 *Consult/PCP/Hospitalist*: [place] Time Discussed: 17:40 Consult Disposition: Will see in ED, Admit Departure - Departure Date of Disposition Decision: 05/11/17 Time of Disposition Decision: 18:42 DIAGNOSIS: Respiratory insufficiency, ESRD (end stage renal disease) Disposition: ADMITTED INPATIENT 09 Certified Medical Emergency: Emergent Condition: Fair Referrals and Follow-Ups: Abdi Huddleston MD [Primary Care Provider] - - Critical Care Note This patient required my direct & personal management of CC.: No
[2017-05-11 17:21] LABS: ALLEN TEST YES; BE 8.5 mmoll (-3.0-3.0); BLOOD TYPE ARTERIAL; DRAW SITE R RADIAL; METHB 0.5 % (0.0-1.5); O2(CT) 14.5 mL/dL (15.0-23.0); PCO2(98.6) 43 mmHg (35-45); PO2(98.6) 50 mmHg (60-100); SAMPLE BLOOD; SAO2 89.1 % (95.0-100.0); THB 11.7 g/dL (11.5-17.4); pH(98.6) 7.49 (7.35-7.45)
[2017-05-11 17:23] LABS: MODALITY ROOM AIR
[2017-05-11 18:15] LABS: MANUAL DIFF NEEDED? NO
[2017-05-11 18:20] LABS: BASO% 0.3 % (0.0-0.8); EOS# 0.13 X1000 (0.0-0.7); EOS% 1.4 % (0.0-10.0); HEMATOCRIT 37.5 % (42.0-52.0); HEMOGLOBIN 12.1 g/dL (14.0-18.0); IMM GRAN# 0.06 X1000 (0.0-0.04); IMM GRAN% 0.7 % (0.0-0.5); LYMPH# 0.75 X1000 (1.2-3.4); LYMPH% 8.3 % (20.5-51.1); MCH 33.6 PG (27-31); MCHC 32.3 g/dL (33-37); MCV 104.2 FL (81-99); MONO# 1.01 X1000 (0.11-0.59); MONO% 11.2 % (1.7-9.3); MPV 9.5 FL (7.4-10.4); NEUT% 78.1 % (42.2-75.2); PLT 150 X1000 (130-400)
[2017-05-11 18:28] LABS: INR 1.06; PROTIME 11.2 Seconds (9.2-11.7); PTT 31.6 Seconds (22.0-36.0)
[2017-05-11 18:38] LABS: ALBUMIN 3.3 g/dL (3.5-5.0); CALCIUM 8.8 mg/dL (8.8-10.2); MAGNESIUM 1.7 mg/dL (1.5-2.7); POTASSIUM 3.5 mmol/L (3.5-5.1); TOTAL BILIRUBIN 0.72 mg/dL (0.20-1.00); TOTAL PROTEIN 6.1 g/dL (6.3-8.3)
--- NOTE | 2017-05-11 18:57 | Diag Imaging Result Doc PS360 ---
EXAM: CHEST-1 VIEW HISTORY: SOB, ALOC TECHNIQUE: Portable AP COMPARISON: 04/27/2017 FINDINGS: Poor inspiratory effort. Sternal wires are present. There are at least small bilateral pleural effusions. The vasculature is distended. Heart is mildly prominent. IMPRESSION: Findings suspicious for congestive failure. Follow-up PA and lateral recommended. Electronically signed by Ibrahima Domínguez 05/11/2017 6:54 PM
[2017-05-11] MEDS ORDERED: TYLENOL PO PRN (19:46)
[2017-05-11] MEDS: PEPCID PO SCH (22:47)
[2017-05-11] MEDS: LOPRESSOR PO SCH (22:47)
[2017-05-11] MEDS: RANEXA PO SCH (22:47)
[2017-05-11] MEDS: EXELON PO SCH (22:47)
[2017-05-11] MEDS: LOVENOX SUBQ SCH (22:47)
[2017-05-11] MEDS: ZOCOR PO SCH (22:47)
--- NOTE | 2017-05-12 04:36 | HISTORY AND PHYSICAL ---
PRIMARY CARE PHYSICIAN: Dr. Abdi Huddleston. CHIEF COMPLAINT: Hypoxia/volume overload. HISTORY OF PRESENT ILLNESS: This is a 76-year-old, white male with a complicated past medical history who presents for evaluation of above-mentioned symptoms. Current history of present illness began on April 24. At that time, patient was admitted to [facility] with alteration of mental status, hypoxia, and T12 compression fracture. Patient required hospitalization until 04/28/2017. At that time, patient was transferred to rehabilitation. Since being at rehabilitation, patient has done reasonably well. The patient had a normal dialysis session on Thursday. Yesterday, patient was noted to be in a good mood without significant complaints. The patient's family did note mild increase in shortness of breath. Today, patient was evaluated by the facility physician and was noted to have volume overload with increasing shortness of breath and hypoxia. The patient was taken for immediate hemodialysis. Patient tolerated this procedure well. Unfortunately, despite this, patient's oxygenation remained low. The patient was transferred to the emergency department for further evaluation and management. Upon arrival, the patient was noted to have underlying hypoxia. Chest x-ray was consistent with increasing volume. Patient will be admitted to the hospital for full evaluation and management of hypoxia secondary to volume overload state in the setting of end-stage renal disease. Of note, patient denies fevers, chills, nausea, vomiting, chest discomfort, palpitations, lower extremity edema, or recent injury while in the rehab facility. The patient denies dysuria, hematuria, pyuria, or changes in bowel movements. PAST MEDICAL HISTORY: 1. Abnormal electrocardiogram with short MS interval. 2. Abnormal skin examination with multiple actinic keratoses and seborrheic keratoses. 3. Progressive dementia. 4. Bilateral carotid artery disease. 5. Cervical spine disease, status post surgical fusion in 2005. 6. Cholelithiasis, status post cholecystectomy in 2005. 7. Chronic kidney disease requiring hemodialysis. 8. Chronic constipation. 9. Hiatal hernia. 10. Increased fall risk secondary to unsteady gait. 11. Benign prostatic hypertrophy. 12. Reflux disease. 13. Hypertension. 14. Hypertriglyceridemia. 15. Hyperlipidemia. 16. 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 17. Ischemic heart disease. 18. Valvular heart disease. 19. Low back pain. 20. Erectile dysfunction. 21. Osteoarthritis. 22. Obstructive sleep apnea. 23. Peripheral vascular disease. CURRENT MEDICATIONS: 1. Acetaminophen 650 mg every 4 hours as needed. 2. Citalopram 40 mg daily. 3. Plavix 75 mg daily. 4. Famotidine 20 mg twice daily. 5. Imdur 30 mg daily. 6. Metoprolol 50 mg twice daily. 7. Zofran 4 mg every 4-6 hours as needed. 8. Ranexa 500 mg twice daily. 9. Exelon 1.5 mg twice daily. 10. Simvastatin 40 mg at bedtime. 11. Percocet 5/325 one-half to one tablet every 4-6 hours as needed. ALLERGIES: Patient states he is allergic to Aricept, codeine, Cozaar, Darvocet-N 100, and lisinopril. SOCIAL HISTORY: Patient is a former smoker, having smoked 1-1/2 packs per day for 37 years. He quit in 1987. He denies alcohol or illicit drug use. 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 He enjoys football. He does not exercise routinely. FAMILY HISTORY: Patient's father passed at age 77 secondary to complications of coronary artery disease. Patient's mother passed at age 95 secondary to complications of colon cancer. She had a history of leukemia. REVIEW OF SYSTEMS: A 12 point review of systems was performed. Pertinent positives and negatives are noted in the history of present illness. PHYSICAL EXAMINATION: VITAL SIGNS: Temperature 98.4, heart rate 92, respirations 26, blood pressure is 134/75. GENERAL: Chronically ill appearing, in no acute distress. HEENT: Normocephalic and atraumatic. Pupils equal, round, and reactive to light. Extraocular muscles intact. Sclerae anicteric. [place] conjunctivae. Oral and nasopharynx clear without exudate. NECK: Supple. No lymphadenopathy. No thyromegaly. No bruits auscultated. CARDIOVASCULAR: Regular rate and rhythm. No significant murmurs, rubs, or gallops. PULMONARY: Decreased breath sounds with crackles at bilateral bases. Adequate air movement. ABDOMEN: Soft, nontender, nondistended. Positive bowel sounds. EXTREMITIES: Moves all extremities well. No significant clubbing, cyanosis, or edema. DERMATOLOGIC: Evaluation reveals no evidence of rash. NEUROLOGIC: Cranial nerves 2 through 12 grossly intact. Motor and sensory grossly intact. PSYCHOLOGIC: Patient is pleasantly confused. LABORATORY DATA: White blood cell count 8.99, hemoglobin 12.1, hematocrit 37.5, platelet count is 150,000. PT 11.2, INR is 1.06, PTT of 31.6. D-dimer 1.35. PH 7.49, PCO2 of 43, PO2 50, bicarbonate 31.3. Sodium 141, potassium 3.5, chloride 99, bicarb 33, BUN 7, creatinine 1.5, glucose 98, calcium 8.8. Total bilirubin 0.72, total protein 6.1, albumin 3.3, alkaline phosphatase 129, AST 20, ALT 14. CK 56, troponin 0.126. Chest x-ray revealed findings suspicious for congestive heart failure. ASSESSMENT AND PLAN: A 76-year-old, white male with a complicated past medical history who presents for evaluation of persistent hypoxia despite hemodialysis. Chest x-ray is consistent with a volume overload state. Patient will be admitted to the hospital for full evaluation and management. 1. Admit to general medicine. 2. Hypoxia - I suspect this is secondary to a volume overload state. The patient did receive hemodialysis today. At the present time, we will treat patient with supplemental oxygen. We will plan repeat hemodialysis/ultrafiltration in the morning. We will discuss this case further with Dr. Cheatham. 3. Volume overload - Unfortunately, patient continues to carry excess fluid. I suspect this is hemodialysis associated. We will need to consider alternative etiologies including congestive heart failure if the patient's overall condition is not improved with repeat hemodialysis/ultrafiltration. We will follow this closely. 4. End-stage renal disease - As above, we will consult Dr. Cheatham. We will plan hemodialysis in the morning. 5. Hypertension - We will continue patient on his home medications. 6. Coronary artery disease - The patient has known disease. We will continue his optimum medical management. 7. Dementia/alteration of mental status - The patient's mental status is at his baseline. For now, we will continue his home medications. 8. Fluid/electrolytes/nutrition. We will monitor electrolytes. Saline lock IV. Renal diet. 9. Prophylaxis. Patient will be placed on subcutaneous Lovenox. cc: Abdi Huddleston MD
[2017-05-12 07:03] LABS: MANUAL DIFF NEEDED? NO
[2017-05-12 07:12] LABS: BASO% 0.5 % (0.0-0.8); EOS# 0.05 X1000 (0.0-0.7); EOS% 0.6 % (0.0-10.0); HEMATOCRIT 35.2 % (42.0-52.0); HEMOGLOBIN 11.2 g/dL (14.0-18.0); IMM GRAN# 0.03 X1000 (0.0-0.04); IMM GRAN% 0.3 % (0.0-0.5); LYMPH# 0.74 X1000 (1.2-3.4); LYMPH% 8.5 % (20.5-51.1); MCH 33.3 PG (27-31); MCHC 31.8 g/dL (33-37); MCV 104.8 FL (81-99); MONO# 0.81 X1000 (0.11-0.59); MONO% 9.3 % (1.7-9.3); MPV 9.9 FL (7.4-10.4); NEUT% 80.8 % (42.2-75.2); PLT 138 X1000 (130-400); RBC 3.36 XMIL (4.7-6.1)
[2017-05-12] MEDS ORDERED: TIGHT: 0.2 ML/HR MISC PRN (07:35)
[2017-05-12] MEDS ORDERED: NS 2,000 ML MISC PRN (07:35)
[2017-05-12] MEDS ORDERED: HEPARIN IV PRN (07:35)
[2017-05-12 07:39] LABS: CALCIUM 8.9 mg/dL (8.8-10.2); POTASSIUM 3.5 mmol/L (3.5-5.1); TOTAL BILIRUBIN 0.64 mg/dL (0.20-1.00); TOTAL PROTEIN 5.8 g/dL (6.3-8.3)
[2017-05-12] MEDS ORDERED: HEPARIN ONE (08:55)
[2017-05-12] MEDS ORDERED: NS 2,000 ML ONE (08:56)
[2017-05-12] MEDS: EXELON PO SCH ×3 (13:26→22:02)
[2017-05-12] MEDS: PEPCID PO SCH ×2 (13:27→22:02)
[2017-05-12] MEDS: RANEXA PO SCH ×2 (13:27→22:02)
[2017-05-12] MEDS: LOPRESSOR PO SCH ×2 (13:27→22:02)
--- NOTE | 2017-05-12 13:36 | CONSULTATION ---
DATE OF CONSULTATION: 05/12/2017 REASON FOR ADMISSION: Fluid volume overload, hypoxia. REASON FOR CONSULTATION: Fluid volume overload, ESRD, assist with medical management. HISTORY OF PRESENT ILLNESS: This is a 76-year-old gentleman well known to our service for end- stage renal disease on hemodialysis. He has had a recent hospitalization secondary to altered mental status, hypoxia, a T12 compression fracture. He was continued on dialysis during that time. Patient had issues with altered mental status during dialysis. The patient was sent to rehab after that hospitalization and has continued his routine outpatient dialysis without any significant issues. The patient normally has dialysis on Thursday, , Thursday. He was noted on Thursday to have some shortness of breath by the family, was evaluated by the physician at the facility, and was noted to have some volume overload. The patient was sent for an extra dialysis treatment yesterday. The patient tolerated that without difficulty. Unfortunately after that his oxygenation did not improve, and so he was sent to the emergency room for further evaluation and management. In the ER, he was noted to have continued hypoxia. His chest x-ray was consistent with fluid volume overload. He was admitted to the hospital for further workup and treatment. The patient does have some underlying dementia and does not keep his oxygen on as ordered. The patient's is with him today and denies him having any nausea , vomiting, fevers or chills or lower extremity edema. PAST MEDICAL HISTORY: 1. End-stage renal disease on hemodialysis. 2. Progressive dementia. 3. Coronary artery disease. 4. Cervical spine disease. 5. Cholelithiasis. 6. Constipation. 7. Hiatal hernia. 8. BPH. 9. Reflux. 10. Hypertension. 11. Hypertriglyceridemia. 12. Hyperlipidemia. 13. Hyperparathyroidism. 14. Ischemic heart disease. 15. Valvular heart disease. 16. Osteoarthritis. 17. Obstructive sleep apnea. 18. PVD. PAST SURGICAL HISTORY: Tunneled catheter. ALLERGIES: 1. Aricept. 2. Codeine. 3. Cozaar. 4. Darvocet. 5. Lisinopril. HOME MEDICATIONS: Listed in the chart as: 1. Acetaminophen. 2. Citalopram. 3. Plavix. 4. . 5. Imdur. 6. Metoprolol. 7. Zofran. 8. Ranexa. 9. Exelon. 10. Simvastatin. 11. Percocet. FAMILY HISTORY: Coronary artery disease, colon cancer. History of leukemia. SOCIAL HISTORY: Current resident of rehab, a former smoker. No ETOH or illicit drug use. REVIEW OF SYSTEMS: Pertinent positives noted above. PHYSICAL EXAMINATION: Vital Signs: Temperature 98.6, pulse 100, respiratory rate 16, blood pressure 129/69. Intake and output have not been measured. General: This is an elderly gentleman resting in bed. He is chronically ill-appearing but is in no acute distress. HEENT: Normocephalic atraumatic. RM, conjunctivae pink. Oral mucosa moist. Neck: Supple. Trachea midline. Positive JVD. Cardiovascular: Regular rate and rhythm without murmur or gallop. Pulmonary: He has decreased breath sounds bilaterally. He has some rales noted. No wheeze. Abdomen: Soft, positive bowel sounds. : Not inspected. Minimal void with hemodialysis assist. Extremities: Wasted. No clubbing cyanosis or edema. Integumentary: Skin is warm and dry, otherwise does have a seborrheic keratosis. Neurologic: Awake and alert, altered mental status. LAB DATA: WBC of 8.6, hemoglobin 11.2, hematocrit 35.2, and platelet count of 138,000. Sodium 140, potassium 3.5, BUN 19, creatinine 2.5. CO2 29, albumin 3. ASSESSMENT/PLAN: 1. Hypoxemia secondary to fluid volume overload. The patient has been in rehab and it is obvious that he has been losing some body mass there. We will challenge his dry weight today and tomorrow and continue to work on managing his fluid volume to his actual dry weight. We did discuss with the family the importance of adequate calories and nutrition, and at this point she will need to be aggressive with his intake. He is quite wasted. 2. End-stage renal disease management. Today is his routine dialysis day. He had a regular dialysis yesterday. We will plan to sequential him today. 3. Hypertension, controlled. 4. Anemia of chronic disease. Stable. 5. Electrolytes, acid-base balance, acceptable. Seen, data reviewed, discussed with Tierra Velásquez on 05/12/17. I agree with the above assessment and plan of care. rg Dictated by ANTOLIN Woods for Juve Cheatham MD cc: MD Abdi Cameron MD MTDD
[2017-05-12] MEDS: PLAVIX PO SCH (13:40)
[2017-05-12] MEDS: IMDUR PO SCH (13:40)
[2017-05-12] MEDS: CELEXA PO SCH (13:40)
--- NOTE | 2017-05-12 18:48 | PROGRESS NOTE ---
DATE: 05/12/2017 SUBJECTIVE: The patient was admitted yesterday with hypoxia and associated volume overload. Upon evaluation this morning, patient was noted to be somnolent. Otherwise, his vital signs were stable. Dr. Cheatham was consulted. Patient was taken for hemodialysis. The patient tolerated this very well. This evening, patient remains somnolent. He continues to show considerable weakness. His oxygenation remained stable with supplemental oxygen. There has been no evidence of fevers, chills, nausea, vomiting, or chest discomfort. OBJECTIVE: Vital Signs: T-max 99.5 degrees, heart rate 99-103, respirations 16-26, blood pressure 105-134/56-75. General: Chronically ill appearing, in no acute distress. Cardiovascular: Slightly tachycardic. Regular rhythm. No significant murmurs, rubs, or gallops. Pulmonary: Crackles at bilateral bases. Abdomen: Soft, nontender, nondistended. Positive bowel sounds. Extremities: Moves all extremities well. No significant clubbing, cyanosis, or edema. Dermatologic: Evaluation reveals multiple ecchymoses. LABORATORY DATA: White blood cell count 8.69, hemoglobin 11.2, hematocrit 35.2, platelet count is 138,000. Sodium 140, potassium 3.5, chloride 98, bicarb 29, BUN 19, creatinine 2.5, glucose 102, calcium 8.9, total bilirubin 0.64, total protein 5.8, albumin 3.0, alkaline phosphatase 128, AST 18, ALT 12. ASSESSMENT AND PLAN: 1. Hypoxia/volume overload - This likely is secondary to underlying end-stage renal disease and significant change in his overall muscle mass affecting his dry weight. The patient was hemodialyzed today. He continues to require supplemental oxygen. We will discuss this case further with Dr. Cheatham. We will consider repeat treatment in the morning to re-establish a new dry weight. For now, we will continue oxygen per protocol. 2. End-stage renal disease - As above, I appreciate Dr. Cheatham's consultation. We will defer management to him. 3. Hypertension - Patient's blood pressure is controlled on his current regimen. 4. Coronary artery disease - Patient has longstanding disease. We will continue to optimize his medical management. 5. Dementia/alteration of mental status - Patient's mental status is approaching baseline. We will continue his home medications. 6. Deconditioning - The patient does remain very weak. He was transferred here from rehabilitation. We will plan to resume rehabilitation once appropriate. 7. Disposition - At this point, patient continues to require fci care in a hospital setting. We will plan discharge home once appropriate. cc: Abdi Huddleston MD
[2017-05-12] MEDS: ZOCOR PO SCH (22:02)
[2017-05-12] MEDS: LOVENOX SUBQ SCH (22:02)
[2017-05-13] MEDS ORDERED: TIGHT: 0.2 ML/HR MISC PRN (08:28)
[2017-05-13] MEDS ORDERED: HEPARIN IV PRN (08:28)
[2017-05-13] MEDS ORDERED: NS 2,000 ML MISC PRN (08:28)
[2017-05-13 08:54] LABS: HEMOGLOBIN 11.7 g/dL (14.0-18.0); MCH 33.8 PG (27-31); MCHC 32.5 g/dL (33-37); MPV 10.1 FL (7.4-10.4); RBC 3.46 XMIL (4.7-6.1)
[2017-05-13 09:13] LABS: ALBUMIN 2.9 g/dL (3.5-5.0); CALCIUM 9.4 mg/dL (8.8-10.2); POTASSIUM 3.9 mmol/L (3.5-5.1)
[2017-05-13] MEDS: LOPRESSOR PO SCH ×2 (10:30→21:10)
[2017-05-13] MEDS: PLAVIX PO SCH (10:47)
[2017-05-13] MEDS: CELEXA PO SCH (10:47)
[2017-05-13] MEDS: IMDUR PO SCH (10:47)
--- NOTE | 2017-05-13 11:37 | PROGRESS NOTE ---
DATE: 05/13/2017 SUBJECTIVE: This morning, patient is more alert. He is interactive. His appetite has improved. He denies fevers, chills, nausea, vomiting, or chest discomfort. Attempted to decrease his oxygen supplementation, but, unfortunately, this was unsuccessful. He is prepared for hemodialysis/ultrafiltration today. OBJECTIVE: Vital Signs: Maximum temperature 98.7 degrees, heart rate 98 to 108, respirations 17 to 20, blood pressure 105 to 125 over 53 to 69. General: Chronically ill appearing, in no acute distress. Cardiovascular: Slightly tachycardic. Regular rhythm. No significant murmurs, rubs, or gallops. Pulmonary: Minimal crackles at the bilateral bases, improved from yesterday. Abdomen: Soft, nontender, nondistended. Positive bowel sounds. Extremities: Moves all extremities well. No significant clubbing, cyanosis, or edema. Dermatologic: Evaluation reveals no evidence of rash. LABORATORY: White blood cell count of 7.20, hemoglobin 11.7, hematocrit 36.0, and platelet count 151,000. Sodium 138, potassium 3.9, chloride 96, bicarbonate 26, BUN 33, creatinine 3.9, glucose 135, calcium 9.4, phosphorus 3.4, albumin 2.9. ASSESSMENT AND PLAN: 1. Hypoxia/volume overload - Clinically, patient has improved. Unfortunately, he remains hypoxic on oxygen evaluation. I have discussed the case with Dr. Cheatham. We will plan to hemodialyze/ultrafiltrate today. We will continue to work towards decreasing oxygen supplemental needs. Prior to discharge, patient had adequate saturations on room air. 2. End-stage renal disease - We will continue hemodialysis/ultrafiltration per Dr. Cheatham's recommendations. 3. Hypertension - Patient's blood pressure is controlled on his current regimen. 4. Coronary artery disease - Patient has longstanding disease. We will continue his optimal medical management. 5. Dementia/alteration of mental status - Patient's mental status has approached baseline. We will continue to encourage activity. We will continue his home medications. 6. Deconditioning - This is significant. Should patient continue to require hospitalization today, we will plan to initiate physical therapy. Otherwise, we will resume physical therapy and rehabilitation at discharge. 7. Disposition - At this point, patient continues to require detention care in a hospital setting. As described above, we will plan discharge back to rehabilitation once volume status has improved. cc: Abdi Huddleston MD
[2017-05-13] MEDS ORDERED: HEPARIN ONE (13:04)
[2017-05-13] MEDS ORDERED: NS 2,000 ML ONE (13:04)
--- NOTE | 2017-05-13 13:42 | PROGRESS NOTE ---
DATE: 05/13/2017 SUBJECTIVE: Patient is sitting up in bed. He is awake and alert. He is pulling at his medical devices. OBJECTIVE: Vital Signs: Temperature 98.5 degrees, pulse 98, respiratory rate 18, blood pressure 125/69. Intake not measured. Output 3.3 L. General: This is a chronically ill-appearing, elderly gentleman resting in bed. He is awake and alert. He is mildly agitated. He is at his historical baseline mental status. HEENT: Normocephalic, atraumatic. His oral mucosa is moist. RM, conjunctivae pink. Neck: Supple. Trachea midline. Some trace JVD. Cardiovascular: Regular rate and rhythm. Tachycardic. No murmur or gallop appreciated. Pulmonary: He continues with crackles to the bases. Respiratory rate effort is improved today. Remains on O2 supplementation via nasal cannula. Abdomen: Soft with positive bowel sounds. : Not inspected. He has minimal void with hemodialysis assist. Extremities: No clubbing, cyanosis or edema. Extremities are wasted. Integumentary: Skin is warm and dry. LAB DATA: Labs for today are pending. ASSESSMENT AND PLAN: 1. End-stage renal disease management. He normally dialyzes on a Thursday, , Thursday schedule. We will run him for ultrafiltration today to assist with fluid volumes. See #2. 2. Hypoxemia, fluid volume overload. He has improved although he remains somewhat hypoxic this morning. We will plan to ultrafiltrate only today. 3. Hypertension, controlled. 4. Electrolytes, acid-base balance, anemia. Labs are pending. These have been stable. Seen, data reviewed, discussed with Tierra Velásquez on 05/13/17. I agree with the above assessment and plan of care. rg Dictated by ANTOLIN Woods for Juve Cheatham MD cc: MD Abdi Cameron MD [facility]
[2017-05-13] MEDS: PEPCID PO SCH ×2 (16:52→21:10)
[2017-05-13] MEDS: EXELON PO SCH ×2 (16:52→21:10)
[2017-05-13] MEDS: RANEXA PO SCH ×2 (16:53→21:10)
[2017-05-13] MEDS: ZOCOR PO SCH (21:09)
[2017-05-13] MEDS: LOVENOX SUBQ SCH (21:10)
[2017-05-14 07:04] LABS: HEMATOCRIT 37.5 % (42.0-52.0); HEMOGLOBIN 12.4 g/dL (14.0-18.0); MCH 33.5 PG (27-31); MCHC 33.1 g/dL (33-37); MCV 101.4 FL (81-99); MPV 9.8 FL (7.4-10.4); RBC 3.7 XMIL (4.7-6.1)
[2017-05-14 07:27] LABS: ALBUMIN 3.1 g/dL (3.5-5.0); CALCIUM 9.8 mg/dL (8.8-10.2); POTASSIUM 3.5 mmol/L (3.5-5.1)
[2017-05-14] MEDS ORDERED: NS 2,000 ML MISC PRN (08:02)
[2017-05-14] MEDS ORDERED: HEPARIN IV PRN (08:02)
[2017-05-14] MEDS ORDERED: TIGHT: 0.2 ML/HR MISC PRN (08:02)
[2017-05-14] MEDS ORDERED: HEPARIN ONE (08:06)
[2017-05-14] MEDS ORDERED: NS 2,000 ML ONE (08:06)
[2017-05-14] MEDS: EXELON PO SCH ×2 (13:00→21:38)
[2017-05-14] MEDS: IMDUR PO SCH (13:01)
[2017-05-14] MEDS: LOPRESSOR PO SCH ×2 (13:01→21:39)
[2017-05-14] MEDS: PLAVIX PO SCH (13:01)
[2017-05-14] MEDS: CELEXA PO SCH (13:01)
[2017-05-14] MEDS: RANEXA PO SCH ×2 (13:01→21:38)
[2017-05-14] MEDS: PEPCID PO SCH ×2 (13:01→21:38)
[2017-05-14] MEDS ORDERED: NS 500 ML IV ONE (16:33)
--- NOTE | 2017-05-14 16:33 | PROGRESS NOTE ---
DATE: 05/14/2017 SUBJECTIVE: He remains weak. His states she has had him up to the bathroom. He was somewhat unstable but able to walk. OBJECTIVE: Vital Signs: Blood pressure 78/48, heart rate 95, respirations 18, afebrile. General: He is in no acute distress. Skin: Warm and dry. Neck: Neck veins are not visible. Heart: Regular. Lungs: Have equal breath sounds. No crackles. Abdomen: Soft, nontender. Bowel sounds are present. Extremities: No edema, clubbing, or cyanosis. IMPRESSION/PLAN: End-stage kidney disease/volume overload. He had dialysis again today. Blood pressure is somewhat low after treatment. We have been trying actively to lower his dry weight but perhaps we have over shot. We will recheck his vitals now and give him a little fluid back if needed. cc: MD Abdi Cameron MD
--- NOTE | 2017-05-14 19:28 | PROGRESS NOTE ---
DATE: 05/14/2017 SUBJECT: This morning, patient was in dialysis upon my initial evaluation. This evening, patient is post dialysis. He has required 500 mL bolus of normal saline secondary to a hypotensive state. Overall, he was doing reasonably well with the exception of significant fatigue. His oxygenation has improved. He denies any fevers, chills, nausea, vomiting, or chest discomfort. OBJECTIVE: Vital Signs: T-max 98.5, heart rate 81-107, respirations 16-18, blood pressure 78-141 over 48 to 68. General: Chronically ill-appearing, in no acute distress. Cardiovascular: Regular rate and rhythm. No significant murmurs, rubs, or gallops. Pulmonary: Crackles at bilateral bases, although improving. Abdomen: Soft, nontender, nondistended. Positive bowel sounds. Extremities: Moves all extremities well. No significant clubbing, cyanosis, or edema. Dermatologic: Evaluation reveals no evidence of rash. LABORATORY DATA: White blood cell count 5.87, hemoglobin 12.4, hematocrit 37.5, platelet count is 167,000. Sodium 137, potassium 3.5, chloride 95, bicarb 28, BUN 49, creatinine 4.9, glucose 9.6, calcium 9.8, phosphorus 3.6, albumin 3.1. ASSESSMENT AND PLAN: 1. Hypoxia/volume overload-it appears we have reached maximum diuresis/volume removal. Patient did experience some hypoxia post hemodialysis today. We will continue oxygen per protocol. Over the course of the last several hours, this has not been required. We will continue to follow patient clinically. 2. End-stage renal disease-we will continue hemodialysis and ultrafiltration per Dr. Cheatham recommendations. 3. Hypertension-Patient's blood pressure dropped after hemodialysis today. I suspect this is volume associated. He was given a 500 mL bolus. We will follow this overnight with anticipation of discharging to rehabilitation in the morning. 4. Coronary artery disease. The patient has long-standing disease. We will continue optimal medical management. 5. Dementia/alteration of mental status-the patient is at baseline. We will remain aware. 6. Deconditioning-We will continue physical therapy. We will plan discharge for rehabilitation once able. DISPOSITION: Patient's volume status is improved considerably. Unfortunately, he developed hypotension earlier today. For now, we will follow the patient overnight with plans to discharge for rehabilitation if able in the morning. cc: Abdi Huddleston MD
[2017-05-14] MEDS: ZOCOR PO SCH (21:37)
[2017-05-14] MEDS: LOVENOX SUBQ SCH (21:37)
[2017-05-15 07:03] LABS: HEMATOCRIT 37.9 % (42.0-52.0); HEMOGLOBIN 12.6 g/dL (14.0-18.0); MCH 33.4 PG (27-31); MCHC 33.2 g/dL (33-37); MCV 100.5 FL (81-99); MPV 9.8 FL (7.4-10.4); RBC 3.77 XMIL (4.7-6.1)
[2017-05-15 07:27] LABS: ALBUMIN 3.3 g/dL (3.5-5.0); CALCIUM 9.6 mg/dL (8.8-10.2); POTASSIUM 3.6 mmol/L (3.5-5.1)
[2017-05-15 07:46] VITALS: BP 112/52
[2017-05-15] MEDS: EXELON PO SCH (09:35)
[2017-05-15] MEDS: RANEXA PO SCH (09:35)
[2017-05-15] MEDS: CELEXA PO SCH (09:35)
[2017-05-15] MEDS: PLAVIX PO SCH (09:35)
[2017-05-15] MEDS: LOPRESSOR PO SCH (09:35)
[2017-05-15] MEDS: IMDUR PO SCH (09:35)
[2017-05-15] MEDS: PEPCID PO SCH (09:35)
--- NOTE | 2017-05-15 10:14 | PROGRESS NOTE ---
DATE: 05/15/2017 SUBJECTIVE: He ended up spending the night because he needed to get a little fluid back. His blood pressure has improved this morning. No shortness of breath. He has not been out of bed yet. OBJECTIVE: Vital Signs: Blood pressure 112/52, heart rate 87, respiration 18, afebrile. General: On physical exam, no acute distress. Skin: Warm and dry. Eyes: Conjunctivae are pink. Neck: Neck veins are not visible. Heart: Regular. No gallops. Lungs: Have equal breath sounds. No crackles. Abdomen: Soft, nontender. Bowel sounds present. Extremities: Have no edema, clubbing, or cyanosis. IMPRESSION: Volume overload. Resolved. We over shot with dialysis, and I had to give him back half liter of fluid. No shortness of breath this morning. Okay for discharge from my perspective. cc: MD Abdi Cameron MD
--- NOTE | 2017-05-15 11:52 | DISCHARGE SUMMARY ---
ADMISSION DATE: 05/14/2017 DISCHARGE DATE: 05/15/2017 ADMISSION DIAGNOSES: 1. Hypoxia. 2. Volume overload. DISCHARGE DIAGNOSES: 1. Hypoxia/volume overload. 2. End-stage renal disease, present on arrival. 3. Hypertension, present on arrival. 4. Coronary artery disease, present on arrival. 5. Dementia, alteration of mental status, present on arrival. 6. Deconditioning, present on arrival. CONSULTATIONS: Dr. Cheatham with Nephrology was consulted for further evaluation and management of volume overload state in the setting of end-stage renal disease. PROCEDURES: 1. A chest x-ray was performed on 05/11/2017 which revealed findings suspicious for congestive heart failure. 2. Multiple hemodialysis and hemofiltration procedures were performed. HISTORY AND PHYSICAL EXAMINATION: See admit note. PHYSICAL EXAMINATION PRIOR TO DISCHARGE: Vital signs: Temperature 98.3, heart rate 87, respirations 18, blood pressure 112/52, O2 saturation 94% on room air. General: Chronically ill appearing, in no acute distress. Cardiovascular: Regular rate and rhythm. No significant murmurs, rubs, or gallops. Pulmonary: Clear to auscultation bilaterally. Abdomen: Soft, nontender, nondistended, positive bowel sounds. Extremities: Moves all extremities well. No significant clubbing, cyanosis, or edema. Dermatologic: Evaluation reveals multiple ecchymoses. LABORATORY DATA PRIOR TO DISCHARGE: White blood cell count 5.05, hemoglobin 12.6, hematocrit 37.9, platelet count 170,000. Sodium 138, potassium 3.6, chloride 95, bicarb 30, BUN 43, creatinine 4.7, glucose 104, calcium 9.6. Phosphorus 4.2. Albumin 3.3. HOSPITAL COURSE: The patient was admitted as per history and physical examination. Hospital course per condition is as follows: 1. Hypoxia/volume overload--Upon admission, the patient was noted to have considerable hypoxia despite an emergent hemodialysis procedure on the day of admission. The patient was treated with hemodialysis and ultrafiltration on a daily basis. A new dry weight was achieved. At the time of discharge, the patient had adequate oxygenation on room air. This will need to be followed very closely as an outpatient. We will continue hemodialysis as described below. 2. End-stage renal disease--The patient currently is being treated on Thursday, , and Thursday. We will continue this current plan per Dr. Cheatham's recommendations. 3. Hypertension--The patient was continued on his home medications while hospitalized. After his last hemodialysis session, the patient experienced a modest episode of hypotension suggesting optimal diuresis. We will continue to follow this as an outpatient. We will plan to hold his Imdur for systolic blood pressures less than 110. Otherwise, we will continue his current regimen. 4. Coronary artery disease--The patient has longstanding disease. We will continue his optimal medical management. 5. Dementia/alteration of mental status--Upon admission, the patient was noted to be somnolent with some alteration of his mental status above his baseline. With treatment of his hypoxia and hemodialysis, he achieved a resolution to baseline. We will discharge patient to rehabilitation at his baseline dementia. 6. Deconditioning--the patient remains very weak. He will return to rehabilitation for further assistance and physical therapy. DISCHARGE CONDITION: Stable. DISPOSITION: Discharge to home. MEDICATIONS: 1. Acetaminophen 650 mg q.4 h. as needed. 2. Citalopram 40 mg daily. 3. Clopidogrel 75 mg daily. 4. Famotidine 20 mg twice daily. 5. Imdur 30 mg daily. 6. Metoprolol 50 mg twice daily. 7. Ranexa 500 mg twice daily. 8. Exelon 1.5 mg twice daily. 9. Simvastatin 40 mg at bedtime. 10.Zofran 4 mg q. 4-6 h. as needed. 11.Oxygen per protocol. FOLLOWUP: The patient is to follow up with me upon completion of rehabilitation. cc: Abdi Huddleston MD
== END 2017-05-15 12:53 ==
LOC: ED 17:04 → 3N 17:04
PROVIDERS: ADMIT Internal Medicine; ATTEND Internal Medicine